=== PATIENT | female | born 1935 | race Caucasian/White ===

== ENCOUNTER 2017-06-05 17:04 | Observation (INO) | payer MEDICARE, SELFPAY ==
[2017-06-05 17:05] VITALS: BP 148/70; PULSE 74; RESP 16; TEMP 37.1; O2SAT 96; BMI 25.0
--- NOTE | 2017-06-05 17:33 | RAD_ITS ---
STUDY: X-RAY - LEFT SHOULDER REASON FOR EXAM: Female, 81 years old. Left shoulder pain. TECHNIQUE: 4 view(s) of the shoulder. COMPARISON: July 29, 2016 FINDINGS: There is stable generalized osteopenia. There is moderate to severe arthrosis of the left glenohumeral joint, relatively unchanged. There is mild arthrosis of the acromioclavicular joint unchanged. Normal acromion. There are large osteophytes of the humeral head unchanged. The soft tissue structures are unremarkable. Normal visualized pulmonary apex. RAD/Shoulder min 2 Views IMPRESSION: Stable osteopenia with osteoarthritic changes. Electronically Signed: Jose Alberto MD at 18:30 EDT , Service support ,
--- NOTE | 2017-06-05 17:33 | RAD_ITS ---
STUDY: X-RAY - ABDOMEN/PELVIS REASON FOR EXAM: Female, 81 years old. Pain TECHNIQUE: Single AP view of the abdomen / pelvis. COMPARISON: None. FINDINGS: There is no bowel obstruction. There is air and stool to the level of the rectum. There is fecal impaction in the rectal vault. The patient is status post left hip arthroplasty. RAD/Abdomen Single View (Portable) IMPRESSION: No bowel obstruction. Fecal impaction in the rectal vault. Electronically Signed: Wilfredo Pozo, at 18:45 EDT Tel , Service support ,
--- NOTE | 2017-06-05 17:35 | ED.VISSUMM ---
- ER Visit Summary Date of Service: 06/05/17 Chief Complaint: Left shoulder pain History of Present Illness: The patient is a 81 F presenting with left shoulder pain. Patient has chronic pain in her left shoulder ?2-3 years. She states she has been told in her rotator cuff is gone. She states on she was cleaning out the drain in her garage and believes that this may have exacerbated her pain. She denies any fall or injury. She also states she has not had a bowel movement in several days. She does not recall her last bowel movement. Denies abdominal pain or vomiting. Physical Examination: Vitals are stable. Patient is afebrile. Alert no acute distress. HEENT exam is unremarkable. Neck is supple. Lungs are clear and equal bilaterally. Heart is regular rate and rhythm. Abdomen is soft nontender nondistended. Extremities left shoulder anterior tenderness, painful range of motion. No erythema or warmth Skin is warm and dry. No focal neurologic deficit. Remainder of exam is unremarkable. Emergency Department Course and Treatment: X-ray of the shoulder shows stable osteopenia. KUB shows no bowel obstruction, fecal impaction. She was given a soapsuds enema with no improvement. She was given Dulcolax with no results. Attempted disimpaction was a very small amount of stool return. Patient does not feel that she can go home. Discussed with the hospitalist for observation Disposition: Observation Impression: Constipation, chronic left shoulder pain This note was generated with [employer] dictation software. It may contain incorrect words, spelling, and punctuation that were not noted in review of the chart prior to signing ED Disposition - Plan for ED Patient: Chief Complaint: Upper Extremity Injury Referrals: Nasir Jacob MD [Primary Care Provider] -
[2017-06-05 18:05] VITALS: RESP 16
[2017-06-05] MEDS: Bisacodyl 10 MG Suppository RECTAL (19:30)
[2017-06-05 20:31] VITALS: BP 147/63; PULSE 75; RESP 18; O2SAT 97
--- NOTE | 2017-06-05 21:31 | PCM.HP.STD ---
Problem List (1) Intractable left shoulder pain Status: Acute (2) Rectal pain Status: Acute (3) HTN (hypertension) Status: Chronic Qualifiers: Hypertension type: essential hypertension Qualified Code(s): I10 - Essential (primary) hypertension (4) Chronic pain syndrome Status: Chronic (5) Dry eye syndrome Status: Chronic Qualifiers: Laterality: bilateral Qualified Code(s): H04.123 - Dry eye syndrome of bilateral lacrimal glands (6) Chronic constipation Status: Chronic History of Present Illness Date of Admission: 06/05/17 Chief Complaint: Acute on chronic L shoulder pain and rectal discomfort w/ no recent BM The patient is a 81 y/o F w/ PMHx: Chronic constipation on chronic narcotics, Chronic L Shoulder Pain and Debility s/p L Rotate Cuff Injury, HTN, Dry Eye Syndrome, Inflammatory Polyarthropathy following w/ Rheumatology who presents to the [facility] ED on 06/05/17 with history of onset worsened L shoulder pain following cleaning 3 days prior to current presentation with worsened debility and also reported rectal discomfort and no recent BM for at least 2-4 days on increased oral narcotic therapy secondary to worsened discomfort. In the ED despite treatment patient noted ongoing pain and anxious about ability to care for self as living alone with ongoing pain. ED work-up included T 98.8, HR 74, BP 148/70, RR 16, 96% on RA, Plain Film L Shoulder w/ stable osteopenia with OA changes, KUB w/ no bowel obstruction but noted significant fecal impaction in the rectal vault with ED physician attempts at disimpaction as well as Dulcolax and soapsuds enema with some success. Past Medical History Past Medical History (Chronic Problems): Chronic Problems HTN (hypertension) (Chronic) Chronic pain syndrome (Chronic) Dry eye syndrome (Chronic) Chronic constipation (Chronic) Allergies No Known Allergies Allergy (Verified 06/05/17 17:08) Home Medications: Ambulatory Orders Medication Instructions Recorded Aspirin [Aspirin, Baby] 81 mg PO DAILY 07/26/16 Calcium Carbonate/Vitamin D3 1 tab PO BID 07/26/16 [Calcium 500 mg Chewable Tablet] Carvedilol [Coreg (Beta Lisandro)] 37.5 mg PO BID 07/26/16 CycloSPORINE Ophthalmic [Restasis 1 drop EACH EYE BID 07/26/16 Ophthalmic] Losartan Potassium 100 mg PO DAILY 07/26/16 Erythromycin Ophthalmic 1 applic OPHTHALMIC QHS 07/27/16 Polyethylene Glycol 3350 [Miralax] 17 gm PO QODAY 02/11/17 Surgical History: - - L THR, D+C. 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 Paternal History Items: - - Paternal family history of hypertension, colorectal cancer. Review of Systems Constitutional: Reports: Malaise, Weakness, Fatigue. Denies: Chills, Fever, Weight Change HEENT: Denies: Head Aches, Sinus Congestion, Sinus Drainage Cardiovascular: Denies: Chest Pain, Palpitations Respiratory: Denies: Cough, Shortness of breath at rest, Sputum production Gastrointestinal: Reports: Abdominal Pain, Constipation. Denies: Nausea, Vomiting Genitourinary: Denies: Dysuria Musculoskeletal: Reports: Arm Pain, Back Pain, Joint stiffness, Joint swelling, Joint Tenderness, Shoulder Pain. Denies: Joint Pain Skin: Denies: Rash, Wounds Neurological: Denies: Numbness, Tingling, Focal weakness Psychiatric: Denies: Anxiety, Depression, Homicidal Ideations, Suicidal Ideations Hematologic/ Lymphatic: Denies: Easy Bruising, Easy Bleeding VTE Information - Inpt Only VTE Present on Admission: No VTE Mechan Device Prophylaxis: SCD's VTE Pharm Prophylaxis ordered?: Yes Patient Problems: Active and Suspected Problems Intractable left shoulder pain (Acute) Rectal pain (Acute) Subjective: Seated upright in the ED bed, notes abdominal discomfort ongoing as well as L shoulder pain. Objective: Physical Examination: General: awake, alert, oriented x 3 and cooperative, seated upright in the ED bed, uncomfortable with attempts to use LUE to move in the ED to reorient. Skin: normal color, turgor, no icterus, cyanosis. HEENT: AT/NC, EOMI, PERRLA, dry MM, no carotid bruits or JVD noted. Lungs: CTA bilaterally, moderate effort, mild decrease BL bases, no rales, ronchi or wheezing. Heart: rRgular rate and rhythm; no gallop, rub audible. Abdomen: soft, no marked discomfort w/ palpation, ND, hyperactive BS, no HSM. Extremities: no cyanosis, clubbing, or edema, LUE shoulder discomfort w/ movement attempts and usage attempts, distal pulses intact. Neurological: patient awake, alert, oriented x 3; cognitive function intact; pupils equally reactive to light and accomodation; cranial nerves II-XII grossly normal, moving all 4 extremities but severely limited LUE movement secondary to discomfort, strength accordingly severely globally decreased. Psychiatric: affect appears fatigued, no acute evidence of depressive or anxiety feelings. - Physical Exam Vital Signs Temp Pulse Resp BP Pulse Ox 98.8 F 75 18 147/63 H 97 06/05/17 17:05 06/05/17 20:31 06/05/17 20:31 06/05/17 20:31 06/05/17 20:31 Oxygen Delivery Method Room Air Weight: 119 lb 11.376 oz Body Mass Index (BMI) 25.0 Assessment/Plan Active and Suspected Problems Intractable left shoulder pain (Acute) Rectal pain (Acute) The patient is a 81 y/o F w/ PMHx: Chronic constipation on chronic narcotics, Chronic L Shoulder Pain and Debility s/p L Rotate Cuff Injury, HTN, Dry Eye Syndrome, Inflammatory Polyarthropathy following w/ Rheumatology who presents to the [facility] ED on 06/05/17 with history of onset worsened L shoulder pain following cleaning on day of ED presentation with worsened debility and also reported rectal discomfort and no recent BM for at least 2-4 days on chronic narcotic therapy. (1) Acute on Chronic Intractable L Shoulder Pain: Plain Film L Shoulder w/ stable osteopenia with OA changes, ongoing debility secondary to rotator cuff tear, given debility secondary to age and unable to care for self with elevated fall risk, will admit to MS, elevated LUE, icing extremity, maintain on fall precautions, frequent positioning, po/IV pain regimen, low dose toradol IV, anti-emetics, bowel regimen. Will consult PT and OT for evaluation. If not improving may need to obtain MRI and obtain Orthopedic consultation. Admission CBC, CMP pending as not performed in the ED, most recent labs 2016 were unremarkable. (2) Acute on Chronic Constipation w/ Fecal Impaction: ED disimpaction with some success as well as Dulcolax and soapsuds enema in the ED, will place on lactulose 20 mg q 6 hours until onset BM, encourage OOB to chair and ambulation with staff/therapies to assist w/ BM, repeat enema as needed, will need more aggressive bowel regimen upon home transition once appropriate. (3) Hypertension: Continue home regimen including Coreg, losartan, PRN hydralazine. (4) Dry Eye Syndrome: Continue home regimen restasis and erythromycin oint. (5) Inflammatory Polyarthropathy: Following w/ Rheumatology outpatient, likely complicating #1. (6) DVT Prophylaxis: SCDs, renally dosed lovenox with pending admission labs, alter regimen as needed once resulted. (7) CODE status: Discussed CODE status at length including difference between FULL code, DNR-CCA and DNR-CC status. Following discussions about the differences in these status, confirmed HCPOA Sister Irene Farley and LW in place with DNR-CCA, no intubation status. Advanced Care Planning Face to Face Time: 17 minutes. Code Visit OBSV E&M: 73882 Initial observation care L3 Procedures: 90869 Advncd Care Plan 30 Min
--- NOTE | 2017-06-05 21:43 | HP.PCM_ITS ---
Problem List (1) Intractable left shoulder pain Status: Acute (2) Rectal pain Status: Acute (3) HTN (hypertension) Status: Chronic Qualifiers: Hypertension type: essential hypertension Qualified Code(s): I10 - Essential (primary) hypertension (4) Chronic pain syndrome Status: Chronic (5) Dry eye syndrome Status: Chronic Qualifiers: Laterality: bilateral Qualified Code(s): H04.123 - Dry eye syndrome of bilateral lacrimal glands (6) Chronic constipation Status: Chronic History of Present Illness Date of Admission: 06/05/17 Chief Complaint: Acute on chronic L shoulder pain and rectal discomfort w/ no recent BM The patient is a 81 y/o F w/ PMHx: Chronic constipation on chronic narcotics, Chronic L Shoulder Pain and Debility s/p L Rotate Cuff Injury, HTN, Dry Eye Syndrome, Inflammatory Polyarthropathy following w/ Rheumatology who presents to the [facility] ED on 06/05/17 with history of onset worsened L shoulder pain following cleaning 3 days prior to current presentation with worsened debility and also reported rectal discomfort and no recent BM for at least 2-4 days on increased oral narcotic therapy secondary to worsened discomfort. In the ED despite treatment patient noted ongoing pain and anxious about ability to care for self as living alone with ongoing pain. ED work-up included T 98.8, HR 74, BP 148/70, RR 16, 96% on RA, Plain Film L Shoulder w/ stable osteopenia with OA changes, KUB w/ no bowel obstruction but noted significant fecal impaction in the rectal vault with ED physician attempts at disimpaction as well as Dulcolax and soapsuds enema with some success. Past Medical History Past Medical History (Chronic Problems): Chronic Problems HTN (hypertension) (Chronic) Chronic pain syndrome (Chronic) Dry eye syndrome (Chronic) Chronic constipation (Chronic) Allergies No Known Allergies Allergy (Verified 06/05/17 17:08) Home Medications: Ambulatory Orders Medication Instructions Recorded Aspirin [Aspirin, Baby] 81 mg PO DAILY 07/26/16 Calcium Carbonate/Vitamin D3 1 tab PO BID 07/26/16 [Calcium 500 mg Chewable Tablet] Carvedilol [Coreg (Beta Lisandro)] 37.5 mg PO BID 07/26/16 CycloSPORINE Ophthalmic [Restasis 1 drop EACH EYE BID 07/26/16 Ophthalmic] Losartan Potassium 100 mg PO DAILY 07/26/16 Erythromycin Ophthalmic 1 applic OPHTHALMIC QHS 07/27/16 Polyethylene Glycol 3350 [Miralax] 17 gm PO QODAY 02/11/17 Surgical History: - - L THR, D+C. 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 Paternal History Items: - - Paternal family history of hypertension, colorectal cancer. Review of Systems Constitutional: Reports: Malaise, Weakness, Fatigue. Denies: Chills, Fever, Weight Change HEENT: Denies: Head Aches, Sinus Congestion, Sinus Drainage Cardiovascular: Denies: Chest Pain, Palpitations Respiratory: Denies: Cough, Shortness of breath at rest, Sputum production Gastrointestinal: Reports: Abdominal Pain, Constipation. Denies: Nausea, Vomiting Genitourinary: Denies: Dysuria Musculoskeletal: Reports: Arm Pain, Back Pain, Joint stiffness, Joint swelling, Joint Tenderness, Shoulder Pain. Denies: Joint Pain Skin: Denies: Rash, Wounds Neurological: Denies: Numbness, Tingling, Focal weakness Psychiatric: Denies: Anxiety, Depression, Homicidal Ideations, Suicidal Ideations Hematologic/ Lymphatic: Denies: Easy Bruising, Easy Bleeding VTE Information - Inpt Only VTE Present on Admission: No VTE Mechan Device Prophylaxis: SCD's VTE Pharm Prophylaxis ordered?: Yes Patient Problems: Active and Suspected Problems Intractable left shoulder pain (Acute) Rectal pain (Acute) Subjective: Seated upright in the ED bed, notes abdominal discomfort ongoing as well as L shoulder pain. Objective: Physical Examination: General: awake, alert, oriented x 3 and cooperative, seated upright in the ED bed, uncomfortable with attempts to use LUE to move in the ED to reorient. Skin: normal color, turgor, no icterus, cyanosis. HEENT: AT/NC, EOMI, PERRLA, dry MM, no carotid bruits or JVD noted. Lungs: CTA bilaterally, moderate effort, mild decrease BL bases, no rales, ronchi or wheezing. Heart: rRgular rate and rhythm; no gallop, rub audible. Abdomen: soft, no marked discomfort w/ palpation, ND, hyperactive BS, no HSM. Extremities: no cyanosis, clubbing, or edema, LUE shoulder discomfort w/ movement attempts and usage attempts, distal pulses intact. Neurological: patient awake, alert, oriented x 3; cognitive function intact; pupils equally reactive to light and accomodation; cranial nerves II-XII grossly normal, moving all 4 extremities but severely limited LUE movement secondary to discomfort, strength accordingly severely globally decreased. Psychiatric: affect appears fatigued, no acute evidence of depressive or anxiety feelings. - Physical Exam Vital Signs Temp Pulse Resp BP Pulse Ox 98.8 F 75 18 147/63 H 97 06/05/17 17:05 06/05/17 20:31 06/05/17 20:31 06/05/17 20:31 06/05/17 20:31 Oxygen Delivery Method Room Air Weight: 119 lb 11.376 oz Body Mass Index (BMI) 25.0 Assessment/Plan Active and Suspected Problems Intractable left shoulder pain (Acute) Rectal pain (Acute) The patient is a 81 y/o F w/ PMHx: Chronic constipation on chronic narcotics, Chronic L Shoulder Pain and Debility s/p L Rotate Cuff Injury, HTN, Dry Eye Syndrome, Inflammatory Polyarthropathy following w/ Rheumatology who presents to the [facility] ED on 06/05/17 with history of onset worsened L shoulder pain following cleaning on day of ED presentation with worsened debility and also reported rectal discomfort and no recent BM for at least 2-4 days on chronic narcotic therapy. (1) Acute on Chronic Intractable L Shoulder Pain: Plain Film L Shoulder w/ stable osteopenia with OA changes, ongoing debility secondary to rotator cuff tear, given debility secondary to age and unable to care for self with elevated fall risk, will admit to MS, elevated LUE, icing extremity, maintain on fall precautions, frequent positioning, po/IV pain regimen, low dose toradol IV, anti -emetics, bowel regimen. Will consult PT and OT for evaluation. If not improving may need to obtain MRI and obtain Orthopedic consultation. Admission CBC, CMP pending as not performed in the ED, most recent labs 2016 were unremarkable. (2) Acute on Chronic Constipation w/ Fecal Impaction: ED disimpaction with some success as well as Dulcolax and soapsuds enema in the ED, will place on lactulose 20 mg q 6 hours until onset BM, encourage OOB to chair and ambulation with staff/therapies to assist w/ BM, repeat enema as needed, will need more aggressive bowel regimen upon home transition once appropriate. (3) Hypertension: Continue home regimen including Coreg, losartan, PRN hydralazine. (4) Dry Eye Syndrome: Continue home regimen restasis and erythromycin oint. (5) Inflammatory Polyarthropathy: Following w/ Rheumatology outpatient, likely complicating #1. (6) DVT Prophylaxis: SCDs, renally dosed lovenox with pending admission labs, alter regimen as needed once resulted. (7) CODE status: Discussed CODE status at length including difference between FULL code, DNR-CCA and DNR-CC status. Following discussions about the differences in these status, confirmed HCPOA Sister Irene Farley and LW in place with DNR-CCA, no intubation status. Advanced Care Planning Face to Face Time: 17 minutes. Code Visit OBSV E&M: 43043 Initial observation care L3 Procedures: 04024 Advncd Care Plan 30 Min
[2017-06-05 22:03] VITALS: BP 139/59; PULSE 80; RESP 18; O2SAT 95
[2017-06-05 22:18] LABS: Absolute Lymphocyte Count 0.52 X10^3/ul (0.83-4.51); Absolute Neutrophil Count 7.8 X10^3/uL (2.0-7.7); Basophil# 0.01 X10^3/uL; Basophil% 0.1 % (0-1); Hematocrit 37.9 % (37-47); Hemoglobin 13.1 g/dl (12.0-15.0); Lymphocyte # 0.52 X10^3/ul (4.0); Lymphocyte % 5.7 % (19-41); Mean Corp Hgb Conc 34.6 g/gl (32-36); Mean Corpuscular Hgb 32.7 pg (27.0-32.0); Mean Corpuscular Volume 94.5 fL (81-99); Mean Platelet Vol. 9.6 fl (6.2-12.0); Monocyte# 0.75 X10^3/uL; Monocyte% 8.2 % (0-10); Neutrophil # 7.84 X10^3/uL (2.7-7.7); Neutrophil % 85.9 % (47-70); Platelet Count 142 K/mm3 (150-450); RBC Distribution Width CV 11.8 % (11.6-14.6); Red Blood Count 4.01 M/mm3 (4.2-5.4); White Blood Count 9.1 K/mm3 (4.4-11.0)
[2017-06-05 22:20] LABS: Differential Indicated SCAN CRITERIA MET; POSITIVE COUNT NO; POSITIVE DIFFERENTIAL YES; POSITIVE MORPHOLOGY NO
[2017-06-05 22:30] LABS: Anion Gap 6 (5-15); BUN 15 mg/dL (7-18); BUN/Creat Ratio 20.7 RATIO (10-20); Calcium,Total 8.6 mg/dL (8.5-10.1); Chloride 101 mmol/L (98-107); Creatinine, Serum 0.72 mg/dL (0.55-1.02); EST Glomerular Filtration Rate 82 mL/min (>60); Est Glom Filt Rate - Afr Amer 99 mL/min (>60); Estimated Creatinine Clearance 37.18 ml/min; Glucose 101 mg/dL (74-106); Potassium 4.1 mmol/L (3.5-5.1); Sodium Level 135 mmol/L (136-145)
[2017-06-05 22:37] VITALS: BP 149/69; PULSE 87; RESP 20; TEMP 36.7; O2SAT 97
[2017-06-05 22:39] LABS: Anisocytosis RARE; Macrocytosis RARE; Platelet Estimate ADEQUATE (ADEQ)
[2017-06-05 22:40] VITALS: BMI 24.4
[2017-06-05 22:54] VITALS: BMI 24.4
[2017-06-05 23:04] LABS: Magnesium 2.2 mg/dL (1.6-2.6); Thyroid Stim Hormone (TSH) 1.54 uIU/mL (0.358-3.74)
[2017-06-05] MEDS: Lactulose 20 GM/30 ML UDC PO (23:30)
[2017-06-05] MEDS: Erythromycin Base 1 OPTH.TUBE 1 APPLIC OPHTHALMIC (23:30)
[2017-06-05] MEDS: Carvedilol 12.5 MG Tablet 37.5 MG PO (23:31)
[2017-06-05] MEDS: Ketorolac 15 MG/ML Vial IV (23:31)
[2017-06-05] MEDS: Famotidine 20 MG Tablet PO (23:31)
[2017-06-05] MEDS: Senna/Docusate Sodium 1 Tablet 2 TABLET PO (23:31)
[2017-06-05] MEDS: 0.9% Normal Saline 1,000 ML 100 ML IV (23:32)
[2017-06-06 04:36] VITALS: BP 140/72; PULSE 66; RESP 16; TEMP 36.7; O2SAT 98
[2017-06-06] MEDS: Mag Hydrox/Al Hydrox/Simeth 30 ML UDC PO (04:43)
[2017-06-06 06:53] LABS: Mean Corp Hgb Conc 34.3 g/gl (32-36); Mean Corpuscular Hgb 32.6 pg (27.0-32.0); Mean Corpuscular Volume 95.1 fL (81-99); Mean Platelet Vol. 10.2 fl (6.2-12.0); Platelet Count 141 K/mm3 (150-450); RBC Distribution Width CV 11.4 % (11.6-14.6); RBC Distribution Width SD 38.5 fl (35.1-43.9); Red Blood Count 3.68 M/mm3 (4.2-5.4); White Blood Count 8.8 K/mm3 (4.4-11.0)
[2017-06-06 06:54] LABS: Scan Indicated on CBC? Y/N NO
[2017-06-06] MEDS: Ketorolac 15 MG/ML Vial IV ×2 (07:00→13:50)
[2017-06-06] MEDS: Lactulose 20 GM/30 ML UDC PO (07:00)
[2017-06-06 07:18] LABS: Anion Gap 8 (5-15); BUN 12 mg/dL (7-18); BUN/Creat Ratio 19.3 RATIO (10-20); Calcium,Total 8.2 mg/dL (8.5-10.1); Chloride 101 mmol/L (98-107); Creatinine, Serum 0.62 mg/dL (0.55-1.02); EST Glomerular Filtration Rate 97 mL/min (>60); Est Glom Filt Rate - Afr Amer 118 mL/min (>60); Estimated Creatinine Clearance 33.83 ml/min; Glucose 74 mg/dL (74-106); Potassium 3.5 mmol/L (3.5-5.1); Sodium Level 135 mmol/L (136-145)
[2017-06-06] MEDS: Aspirin 81 MG TAB.CHEW PO (08:57)
[2017-06-06 09:09] VITALS: BP 114/59; PULSE 69; RESP 20; TEMP 36.6; O2SAT 96
--- NOTE | 2017-06-06 10:22 | PCM.PN.HOSP ---
Patient Problems: Active and Suspected Problems Intractable left shoulder pain (Acute) Rectal pain (Acute) Subjective: 81-year-old female admitted on 06/05/2017 with acute on chronic left shoulder pain and constipation. Patient was seen and examined. She had one large bowel movement and she admits to feeling much better. Denies any fever or chills or chest pain. Unable to move the left upper extremity well. Vitals/I&O's: Vital Signs Temp Pulse Resp BP Pulse Ox 98 F 69 20 H 114/59 L 96 06/06/17 09:09 06/06/17 09:09 06/06/17 09:09 06/06/17 09:09 06/06/17 09:09 Oxygen Delivery Method Room Air Weight: 49.4 kg Body Mass Index (BMI) 24.4 Intake and Output for Last 24 Hours 06/04/17 06/05/17 06/06/17 23:59 23:59 23:59 Intake Total 1147.3 / 1147.3 Balance 1147.3 / 1147.3 General: Alert, Oriented x3, Cooperative, No apparent distress HEENT: Atraumatic, PERRLA, EOMI, Normocephalic Oral: Moist Mucosa Neck: Supple Lungs: Clear to auscultation, Normal air movement Cardiovascular: Regular rate, Regular Rhythm, Normal S1, Normal S2, No murmurs Abdomen: Bowel Sounds Present, Soft, Non Tender, Non-Distended, No Hepato-splenomegaly Extremities: No edema Skin: No rashes, No breakdown Musculoskeletal: No Tenderness to Palpation of Joints or Extremities Lymphatic: No Cervical, Supraclavicular, or Inguinal Adenopathy Neurological: Cranial nerves II-XII grossly intact Psych/Mental Status: Normal Affect, Appropriate Laboratory Results 06/05/17 22:00: WBC 9.1, RBC 4.01 L, Hgb 13.1, Hct 37.9, MCV 94.5, MCH 32.7 H, MCHC 34.6, RDW 11.8, RDW Differential 40.0, Plt Count 142 L, MPV 9.6, Immature Gran % (Auto) 0.100, Neut % (Auto) 85.9 H, Lymph % (Auto) 5.7 L, [place] % (Auto) 8.2, Eos % (Auto) 0.0, Baso % (Auto) 0.1, Absolute Neuts (auto) 7.8 H, Absolute Lymphs (auto) 0.52 L, Total Counted Not Reportable, Differential Comment SEE COMMENT, Platelet Estimate ADEQUATE, Anisocytosis RARE, Macrocytosis RARE 06/05/17 22:00: Sodium 135 L, Potassium 4.1, Chloride 101, Carbon Dioxide 28.0, Anion Gap 6, BUN 15, Creatinine 0.72, Estim Creat Clear Calc 37.18, Est GFR (MDRD) Af Amer 99, Est GFR (MDRD) Non-Af 82, BUN/Creatinine Ratio 20.7 H, Glucose 101, Calcium 8.6 06/05/17 22:00: Magnesium 2.2, TSH 1.54 06/06/17 06:23: WBC 8.8, RBC 3.68 L, Hgb 12.0, Hct 35.0 L, MCV 95.1, MCH 32.6 H, MCHC 34.3, RDW 11.4 L, RDW Differential 38.5, Plt Count 141 L, MPV 10.2 06/06/17 06:23: Sodium 135 L, Potassium 3.5, Chloride 101, Carbon Dioxide 26.0, Anion Gap 8, BUN 12, Creatinine 0.62, Estim Creat Clear Calc 33.83, Est GFR (MDRD) Af Amer 118, Est GFR (MDRD) Non-Af 97, BUN/Creatinine Ratio 19.3, Glucose 74, Calcium 8.2 L Current Medications Acetaminophen (Tylenol) 650 mg PO Q6H PRN PRN PRN Reason: Mild Pain (scale 0-3)/T>100.7 Al Hydroxide/Mg Hydroxide (Mylanta Ii) 30 ml PO Q6H PRN PRN PRN Reason: Gastric burning Last Admin: 06/06/17 04:43 Dose: 30 ml Artificial Tears (Tears Naturale, Artificial Tears) 2 drop EACH EYE Q1H PRN PRN PRN Reason: DRY EYES [facility] Last Admin: 06/06/17 08:57 Dose: 81 mg Carvedilol (Coreg) 37.5 mg PO BID [facility] Last Admin: 06/05/17 23:31 Dose: 37.5 mg Enoxaparin Sodium (Lovenox) 30 mg SC DAILY@1000 [facility] Erythromycin () 1 applic OPHTHALMIC QHS [facility] Last Admin: 06/05/17 23:30 Dose: 1 applicatio Famotidine (Pepcid) 20 mg PO BID [facility] Last Admin: 06/05/17 23:31 Dose: 20 mg Sodium Chloride () 250 mls @ 15 mls/hr IV .[id number] PRN PRN Reason: SALINE FLUSH Ketorolac Tromethamine (Toradol) 15 mg IV Q8 [facility] Stop: 06/06/17 14:01 Last Admin: 06/06/17 07:00 Dose: 15 mg Lactulose (Chronulac, Cephulac) 20 gm PO Q6 [facility] Last Admin: 06/06/17 07:00 Dose: 20 gm Losartan Potassium (Cozaar) 100 mg PO DAILY [facility] Magnesium Hydroxide (Milk Of Magnesia) 30 ml PO DAILY PRN PRN PRN Reason: Constipation Morphine Sulfate () 2 - 4 mg IV Q3H PRN PRN PRN Reason: Severe Pain (pain scale 6-10) Morphine Sulfate () 1 - 2 mg IV Q4H PRN PRN PRN Reason: Moderate Pain (pain scale 4-5) Morphine Sulfate () 2 - 4 mg IV Q3H PRN PRN PRN Reason: Severe Pain (pain scale 6-10) Nutritional Formula (Lactose Free) (Ensure Enlive) 120 ml PO 4X/DAY [facility] Ondansetron HCl (Zofran) 4 mg IV Q8H PRN PRN PRN Reason: NAUSEA Oxycodone HCl (Oxyir) 5 mg PO Q4H PRN PRN PRN Reason: Moderate Pain (pain scale 4-5) Promethazine HCl (Phenergan Iv) 12.5 mg IV Q6H PRN PRN PRN Reason: NAUSEA/VOMITING Psyllium Hydrophilic Mucilloid (Metamucil) 1 packet PO DAILY [facility] Last Admin: 06/06/17 08:57 Dose: Not Given Senna/Docusate Sodium (Senokot-S, Roselyn-Colace) 2 tablet PO BID [facility] Last Admin: 06/06/17 08:56 Dose: Not Given Sodium Chloride () 5 - 30 ml IV UD PRN PRN Reason: SALINE FLUSH Medical Necessity - Tobacco Use Smoking Status: Never smoker Tobacco Use: Non-smoker Assessment/Plan Active and Suspected Problems Intractable left shoulder pain (Acute) Rectal pain (Acute) 81 y/o female past medical history of chronic pain syndrome, on chronic narcotics, debility with chronic left shoulder pain, history of left rotator cuff injury, hypertension, who comes in with complaints of worsening left shoulder pain as well as constipation. 1. Acute on Chronic Intractable left Shoulder Pain, pain is fairly controlled now, the x-ray shows moderate to severe arthrosis of the left glenohumeral joint with osteopenia , on Toradol, Oxycodone and morphine. Will consult orthopedic team for second opinion of options of managing left shoulder pain such as possible left shoulder injection. 2. Acute on Chronic Constipation with Fecal Impaction, resolved, had a large bowel movement this a.m. Will continue stool softeners. 3. Hypertension, controlled on Coreg, losartan, PRN hydralazine. 4. Dry Eye Syndrome, on home regimen restasis and erythromycin oint. 5. 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 6. DVT Prophylaxis - on Lovenox 7. CODE status: DNR-CCA Code Visit Inpatient E&M: 75798 Subs Hosp L2
--- NOTE | 2017-06-06 10:30 | PN_ITS ---
Patient Problems: Active and Suspected Problems Intractable left shoulder pain (Acute) Rectal pain (Acute) Subjective: 81-year-old female admitted on 06/05/2017 with acute on chronic left shoulder pain and constipation. Patient was seen and examined. She had one large bowel movement and she admits to feeling much better. Denies any fever or chills or chest pain. Unable to move the left upper extremity well. Vitals/I&O's: Vital Signs Temp Pulse Resp BP Pulse Ox 98 F 69 20 H 114/59 L 96 06/06/17 09:09 06/06/17 09:09 06/06/17 09:09 06/06/17 09:09 06/06/17 09:09 Oxygen Delivery Method Room Air Weight: 49.4 kg Body Mass Index (BMI) 24.4 Intake and Output for Last 24 Hours 06/04/17 06/05/17 06/06/17 23:59 23:59 23:59 Intake Total 1147.3 / 1147.3 Balance 1147.3 / 1147.3 General: Alert, Oriented x3, Cooperative, No apparent distress HEENT: Atraumatic, PERRLA, EOMI, Normocephalic Oral: Moist Mucosa Neck: Supple Lungs: Clear to auscultation, Normal air movement Cardiovascular: Regular rate, Regular Rhythm, Normal S1, Normal S2, No murmurs Abdomen: Bowel Sounds Present, Soft, Non Tender, Non-Distended, No Hepato- splenomegaly Extremities: No edema Skin: No rashes, No breakdown Musculoskeletal: No Tenderness to Palpation of Joints or Extremities Lymphatic: No Cervical, Supraclavicular, or Inguinal Adenopathy Neurological: Cranial nerves II-XII grossly intact Psych/Mental Status: Normal Affect, Appropriate Laboratory Results 06/05/17 22:00: WBC 9.1, RBC 4.01 L, Hgb 13.1, Hct 37.9, MCV 94.5, MCH 32.7 H, MCHC 34.6, RDW 11.8, RDW Differential 40.0, Plt Count 142 L, MPV 9.6, Immature Gran % (Auto) 0.100, Neut % (Auto) 85.9 H, Lymph % (Auto) 5.7 L, [place] % (Auto) 8.2, Eos % (Auto) 0.0, Baso % (Auto) 0.1, Absolute Neuts (auto) 7.8 H, Absolute Lymphs (auto) 0.52 L, Total Counted Not Reportable, Differential Comment SEE COMMENT, Platelet Estimate ADEQUATE, Anisocytosis RARE, Macrocytosis RARE 06/05/17 22:00: Sodium 135 L, Potassium 4.1, Chloride 101, Carbon Dioxide 28.0, Anion Gap 6, BUN 15, Creatinine 0.72, Estim Creat Clear Calc 37.18, Est GFR ( MDRD) Af Amer 99, Est GFR (MDRD) Non-Af 82, BUN/Creatinine Ratio 20.7 H, Glucose 101, Calcium 8.6 06/05/17 22:00: Magnesium 2.2, TSH 1.54 06/06/17 06:23: WBC 8.8, RBC 3.68 L, Hgb 12.0, Hct 35.0 L, MCV 95.1, MCH 32.6 H , MCHC 34.3, RDW 11.4 L, RDW Differential 38.5, Plt Count 141 L, MPV 10.2 06/06/17 06:23: Sodium 135 L, Potassium 3.5, Chloride 101, Carbon Dioxide 26.0, Anion Gap 8, BUN 12, Creatinine 0.62, Estim Creat Clear Calc 33.83, Est GFR ( MDRD) Af Amer 118, Est GFR (MDRD) Non-Af 97, BUN/Creatinine Ratio 19.3, Glucose 74, Calcium 8.2 L Current Medications Acetaminophen (Tylenol) 650 mg PO Q6H PRN PRN PRN Reason: Mild Pain (scale 0-3)/T>100.7 Al Hydroxide/Mg Hydroxide (Mylanta Ii) 30 ml PO Q6H PRN PRN PRN Reason: Gastric burning Last Admin: 06/06/17 04:43 Dose: 30 ml Artificial Tears (Tears Naturale, Artificial Tears) 2 drop EACH EYE Q1H PRN PRN PRN Reason: DRY EYES [facility], [facility] Last Admin: 06/06/17 08:57 Dose: 81 mg Carvedilol (Coreg) 37.5 mg PO BID [facility] Last Admin: 06/05/17 23:31 Dose: 37.5 mg Enoxaparin Sodium (Lovenox) 30 mg SC DAILY@1000 [facility] Erythromycin () 1 applic OPHTHALMIC QHS [facility] Last Admin: 06/05/17 23:30 Dose: 1 applicatio Famotidine (Pepcid) 20 mg PO BID [facility] Last Admin: 06/05/17 23:31 Dose: 20 mg Sodium Chloride () 250 mls @ 15 mls/hr IV .[id number] PRN PRN Reason: SALINE FLUSH Ketorolac Tromethamine (Toradol) 15 mg IV Q8 [facility] Stop: 06/06/17 14:01 Last Admin: 06/06/17 07:00 Dose: 15 mg Lactulose (Chronulac, Cephulac) 20 gm PO Q6 [facility] Last Admin: 06/06/17 07:00 Dose: 20 gm Losartan Potassium (Cozaar) 100 mg PO DAILY [facility] Magnesium Hydroxide (Milk Of Magnesia) 30 ml PO DAILY PRN PRN PRN Reason: Constipation Morphine Sulfate () 2 - 4 mg IV Q3H PRN PRN PRN Reason: Severe Pain (pain scale 6-10) Morphine Sulfate () 1 - 2 mg IV Q4H PRN PRN PRN Reason: Moderate Pain (pain scale 4-5) Morphine Sulfate () 2 - 4 mg IV Q3H PRN PRN PRN Reason: Severe Pain (pain scale 6-10) Nutritional Formula (Lactose Free) (Ensure Enlive) 120 ml PO 4X/DAY [facility] Ondansetron HCl (Zofran) 4 mg IV Q8H PRN PRN PRN Reason: NAUSEA Oxycodone HCl (Oxyir) 5 mg PO Q4H PRN PRN PRN Reason: Moderate Pain (pain scale 4-5) Promethazine HCl (Phenergan Iv) 12.5 mg IV Q6H PRN PRN PRN Reason: NAUSEA/VOMITING Psyllium Hydrophilic Mucilloid (Metamucil) 1 packet PO DAILY [facility] Last Admin: 06/06/17 08:57 Dose: Not Given Senna/Docusate Sodium (Senokot-S, Roselyn-Colace) 2 tablet PO BID [facility] Last Admin: 06/06/17 08:56 Dose: Not Given Sodium Chloride () 5 - 30 ml IV UD PRN PRN Reason: SALINE FLUSH Medical Necessity - Tobacco Use Smoking Status: Never smoker Tobacco Use: Non-smoker Assessment/Plan Active and Suspected Problems Intractable left shoulder pain (Acute) Rectal pain (Acute) 81 y/o female past medical history of chronic pain syndrome, on chronic narcotics, debility with chronic left shoulder pain, history of left rotator cuff injury, hypertension, who comes in with complaints of worsening left shoulder pain as well as constipation. 1. Acute on Chronic Intractable left Shoulder Pain, pain is fairly controlled now, the x-ray shows moderate to severe arthrosis of the left glenohumeral joint with osteopenia , on Toradol, Oxycodone and morphine. Will consult orthopedic team for second opinion of options of managing left shoulder pain such as possible left shoulder injection. 2. Acute on Chronic Constipation with Fecal Impaction, resolved, had a large bowel movement this a.m. Will continue stool softeners. 3. Hypertension, controlled on Coreg, losartan, PRN hydralazine. 4. Dry Eye Syndrome, on home regimen restasis and erythromycin oint. 5. 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 6. DVT Prophylaxis - on Lovenox 7. CODE status: DNR-CCA Code Visit Inpatient E&M: 37822 Subs Hosp L2
[2017-06-06 10:32] VITALS: PULSE 69; RESP 20
[2017-06-06] MEDS: Famotidine 20 MG Tablet PO ×2 (10:41→21:44)
[2017-06-06] MEDS: Losartan Potassium 100 MG Tablet PO (10:41)
[2017-06-06] MEDS: Enoxaparin 30 MG/0.3 ML Syringe SC (10:41)
[2017-06-06] MEDS: Carvedilol 12.5 MG Tablet 37.5 MG PO ×2 (10:41→21:44)
[2017-06-06 11:55] VITALS: O2SAT 97
[2017-06-06] MEDS: 0.9% NaCl Peripheral Flush Adult/Peds IV (13:50)
[2017-06-06 15:30] VITALS: BP 91/42; PULSE 63; RESP 20; TEMP 36.6; O2SAT 98
[2017-06-06 21:34] VITALS: BP 130/67; PULSE 70; RESP 16; TEMP 36.9; O2SAT 98
[2017-06-06] MEDS: Erythromycin Base 1 OPTH.TUBE 1 APPLIC OPHTHALMIC (21:45)
[2017-06-07 02:22] VITALS: BP 115/57; PULSE 67; RESP 18; TEMP 36.5; O2SAT 96
[2017-06-07] MEDS: Lactulose 20 GM/30 ML UDC PO (06:18)
[2017-06-07 07:50] VITALS: O2SAT 98
[2017-06-07 09:12] VITALS: BP 117/57; PULSE 67; RESP 16; TEMP 36.6; O2SAT 97
[2017-06-07] MEDS: Enoxaparin 30 MG/0.3 ML Syringe SC (09:20)
[2017-06-07] MEDS: Carvedilol 12.5 MG Tablet 37.5 MG PO (09:20)
[2017-06-07] MEDS: Losartan Potassium 100 MG Tablet PO (09:20)
[2017-06-07] MEDS: Aspirin 81 MG TAB.CHEW PO (09:20)
[2017-06-07] MEDS: Famotidine 20 MG Tablet PO (09:21)
--- NOTE | 2017-06-07 10:18 | PN_ITS ---
Patient Problems: Active and Suspected Problems Intractable left shoulder pain (Acute) Rectal pain (Acute) Subjective: Patient is an 81 year old lady with history of chronic pain syndrome significant physical debility with chronic left shoulder pain who presented with acute exacerbation imaging studies obtained and admission demonstrated moderate to severe arthrosis of the left glenohumeral joint with osteopenia, admitted to regular nursing floor for symptomatic management in addition to orthopedic consult 06/07/2017: Patient had constipation treated symptomatically Objective: GENERAL: cooperative HEENT: Clear conjunctiva, NECK; supple, normal thyroid, CHEST: Clear to auscultation bilaterally, HEART: Regular S1 S2, no audible murmurs ABDOMEN: soft, non-tender, normoactive bowel sounds, RECTAL: deferred EXTREMITIES: No edema, no clubbing, no cyanosis. 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 SKIN: No rash Vitals/I&O's: Vital Signs Temp Pulse Resp BP Pulse Ox 97.9 F 67 16 117/57 L 97 06/07/17 09:12 06/07/17 09:12 06/07/17 09:12 06/07/17 09:12 06/07/17 09:12 Oxygen Delivery Method Room Air Weight: 49.4 kg Body Mass Index (BMI) 24.4 Intake and Output for Last 24 Hours 06/05/17 06/06/17 06/07/17 23:59 23:59 23:59 Intake Total 2227.3 / 2227.3 200 / 200 Balance 2227.3 / 2227.3 200 / 200 Current Medications Acetaminophen (Tylenol) 650 mg PO Q6H PRN PRN PRN Reason: Mild Pain (scale 0-3)/T>100.7 Al Hydroxide/Mg Hydroxide (Mylanta Ii) 30 ml PO Q6H PRN PRN PRN Reason: Gastric burning Last Admin: 06/06/17 04:43 Dose: 30 ml Artificial Tears (Tears Naturale, Artificial Tears) 2 drop EACH EYE Q1H PRN PRN PRN Reason: DRY EYES Last Admin: 06/06/17 21:44 Dose: 2 drop [facility], [facility]) [facility] Last Admin: 06/07/17 09:20 Dose: 81 mg Carvedilol (Coreg) 37.5 mg PO BID [facility] Last Admin: 06/07/17 09:20 Dose: 37.5 mg Enoxaparin Sodium (Lovenox) 30 mg SC DAILY@1000 [facility] Last Admin: 06/07/17 09:20 Dose: 30 mg Erythromycin () 1 applic OPHTHALMIC QHS [facility] Last Admin: 06/06/17 21:45 Dose: 1 applicatio Famotidine (Pepcid) 20 mg PO BID [facility] Last Admin: 06/07/17 09:21 Dose: 20 mg Sodium Chloride () 250 mls @ 15 mls/hr IV .[id number] PRN PRN Reason: SALINE FLUSH Lactulose (Chronulac, Cephulac) 20 gm PO Q6 [facility] Last Admin: 06/07/17 06:18 Dose: 20 gm Losartan Potassium (Cozaar) 100 mg PO DAILY [facility] Last Admin: 06/07/17 09:20 Dose: 100 mg Magnesium Hydroxide (Milk Of Magnesia) 30 ml PO DAILY PRN PRN PRN Reason: Constipation Morphine Sulfate () 2 - 4 mg IV Q3H PRN PRN PRN Reason: Severe Pain (pain scale 6-10) Morphine Sulfate () 1 - 2 mg IV Q4H PRN PRN PRN Reason: Moderate Pain (pain scale 4-5) Morphine Sulfate () 2 - 4 mg IV Q3H PRN PRN PRN Reason: Severe Pain (pain scale 6-10) Nutritional Formula (Lactose Free) (Ensure Enlive) 120 ml PO 4X/DAY [facility] Last Admin: 06/07/17 09:22 Dose: 120 ml Ondansetron HCl (Zofran) 4 mg IV Q8H PRN PRN PRN Reason: NAUSEA Oxycodone HCl (Oxyir) 5 mg PO Q4H PRN PRN PRN Reason: Moderate Pain (pain scale 4-5) Promethazine HCl (Phenergan Iv) 12.5 mg IV Q6H PRN PRN PRN Reason: NAUSEA/VOMITING Psyllium Hydrophilic Mucilloid (Metamucil) 1 packet PO DAILY [facility] Last Admin: 06/07/17 09:20 Dose: Not Given Senna/Docusate Sodium (Senokot-S, Roselyn-Colace) 2 tablet PO BID [facility] Last Admin: 06/07/17 09:20 Dose: Not Given Sodium Chloride () 5 - 30 ml IV UD PRN PRN Reason: SALINE FLUSH Last Admin: 06/06/17 13:50 Dose: 10 ml Medical Necessity - Tobacco Use Smoking Status: Never smoker Tobacco Use: Non-smoker Assessment/Plan Active and Suspected Problems Intractable left shoulder pain (Acute) Rectal pain (Acute) Patient is an 81 year old lady with history of chronic pain syndrome significant physical debility with chronic left shoulder pain who presented with acute exacerbation imaging studies obtained and admission demonstrated moderate to severe arthrosis of the left glenohumeral joint with osteopenia, admitted to regular nursing floor for symptomatic management in addition to orthopedic consult 1. Left shoulder pain: Imaging studies demonstrated; moderate to severe arthrosis of the left glenohumeral joint with osteopenia, admitted to regular nursing floor for symptomatic management in addition to orthopedic consult 2. Constipation resolved with treatment 3. Hypertension-blood pressure controlled, home medications continued with dose adjustment as needed 4. Inflammatory polyarthropathy vision is followed by rheumatology as outpatient 5. DVT prophylaxis SC Lovenox CODE STATUS DNR CCA Code Visit OBSV E&M: 00310 Subsequent observation care L3
--- NOTE | 2017-06-07 11:35 | CASEMGMT ---
Medicare Outpatient Observation Notice reviewed with patient. Patient voiced understanding and signed notice. RN FAROOQ provided copy of signed for to patient as well as Medicare Inpatient vs Outpatient information packet. Original signed form filed on chart. Patient voiced no questions or concerns at this time.
--- NOTE | 2017-06-07 11:44 | PCM.CONS.GEN ---
Problem List (1) Intractable left shoulder pain Status: Chronic Reason for Consult Date of Consultation: 06/07/17 Reason for Consultation: Chronic left shoulder pain History of Present Illness: The patient is a 81 year old F [] who was brought to the emergency department via squad due to abdominal pain and constipation. Patient also informed them that she was having ongoing chronic shoulder pain. Patient states this is the same pain she has had for many years. She has been seen previously by Dr. Syed as well as Dr. Gao and has received intra-articular injections in the past. Patient feels her last injection was sometime in 2017. Patient reports no falls or new injuries to the shoulder. Patient states this is the same pain she has had for many years, it is unable to use any form of oral anti-inflammatory per Dr. Gao. Per patient as well as nursing staff patient has had frequent bowel movements since she has been here. States her pain is well-managed at this time in her left shoulder. No other complaints. Past Medical History Past Medical History (Chronic Problems): Chronic Problems Intractable left shoulder pain (Chronic) HTN (hypertension) (Chronic) Chronic pain syndrome (Chronic) Dry eye syndrome (Chronic) Chronic constipation (Chronic) Allergies No Known Allergies Allergy (Verified 06/05/17 17:08) Home Medications: Ambulatory Orders Medication Instructions Recorded Aspirin [Aspirin, Baby] 81 mg PO DAILY 07/26/16 Calcium Carbonate/Vitamin D3 1 tab PO BID 07/26/16 [Calcium 500 mg Chewable Tablet] Carvedilol [Coreg (Beta Lisandro)] 37.5 mg PO BID 07/26/16 CycloSPORINE Ophthalmic [Restasis 1 drop EACH EYE BID 07/26/16 Ophthalmic] Losartan Potassium 100 mg PO DAILY 07/26/16 Erythromycin Ophthalmic 1 applic OPHTHALMIC QHS 07/27/16 Polyethylene Glycol 3350 [Miralax] 17 gm PO DAILY 02/11/17 Tramadol HCl [Ultram] 50 mg PO 06/06/17 Surgical History: - - L THR, D+C. 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 Paternal History Items: - - Paternal family history of hypertension, colorectal cancer. Review of Systems HEENT: Reports: Difficulty Hearing. Denies: Sinus Congestion Respiratory: Denies: Shortness of breath at rest Musculoskeletal: Reports: Arm Pain, Joint Pain, Joint stiffness, Shoulder Pain Patient Problems: Active and Suspected Problems Rectal pain (Acute) Subjective: Upon entering the room I found the patient sitting in a chair at bedside. Patient was alert and oriented. Negative respiratory distress. Cranial nerves II through XII grossly intact. No pain to palpation cervical thoracic lumbosacral spine. Full range of motion of the right shoulder without pain. Left shoulder patient had increasing pain with it in difficulty with elevation overhead passively she was able to elevate overhead with some mild pain patient has severe pain with any active range of motion or motion against resistance. Positive Neer's positive Tanner negative drop arm test positive crossover patient did have palpable crepitus with range of motion of the glenohumeral as well as AC joint. His shoulder was cool to touch nonerythematous. Good muscle tone and strength of biceps triceps good flexion-extension of the elbow wrist and hand left hand neurovascular is otherwise intact. Review of imaging studies show patient has severe osteoarthritis change of the femoral head neck and glenoid and glenoid she has a large type II acromion with downsloping impingement severe AC joint arthrosis. Objective: Procedure The patient verbal consent under sterile conditions and posterior aspect of the left shoulder I then injected 2 cc of Celestone 4 cc 1% lidocaine which patient tolerated very well there is good with a Band-Aid postinjection instruction reviewed and discussed - Physical Exam General: Alert, Oriented x3, Cooperative HEENT: PERRLA Vital Signs Temp Pulse Resp BP Pulse Ox 97.9 F 67 16 117/57 L 97 06/07/17 09:12 06/07/17 09:12 06/07/17 09:12 06/07/17 09:12 06/07/17 09:12 Oxygen Delivery Method Room Air Weight: 49.4 kg Body Mass Index (BMI) 24.4 Intake and Output for Last 24 Hours 06/05/17 06/06/17 06/07/17 23:59 23:59 23:59 Intake Total 2227.3 / 2227.3 200 / 200 Balance 2227.3 / 2227.3 200 / 200 Assessment/Plan Active and Suspected Problems Rectal pain (Acute) Impression 1. Severe chronic left shoulder pain 2. Severe end-stage osteoarthritis of left shoulder. 3. Subacromial impingement 4. Incompetent rotator cuff 5. Acute tendinosis of the left shoulder 6. AC joint arthrosis Plan 1. Continue all pain medications as prescribed 2. Continue physical therapy, at discharge continue with outpatient therapy 3. Follow with Dr. Syed in 2-3 weeks 4. A discontinuation of anticoagulation of Lovenox consideration for on oral daily anti-inflammatory 5. Discharge home when clear with medicine
[2017-06-07] MEDS: Betamethasone/Betamethasone 30 MG/5 ML Vial 6 MG IM (12:02)
--- NOTE | 2017-06-07 12:33 | PCM.DC ---
- Discharge Diagnoses Current Active Problems: Current Active and Chronic Problems Intractable left shoulder pain (Chronic) Rectal pain (Acute) HTN (hypertension) (Chronic) Chronic pain syndrome (Chronic) Dry eye syndrome (Chronic) Chronic constipation (Chronic) You will use the following diet at home:: No restrictions Discharge Activity: May not drive while taking narcotic pain medications. Allergies/Adverse Reactions: Allergies No Known Allergies Allergy (Verified 06/05/17 17:08) Medications to take at Discharge Aspirin [Aspirin, Baby] 81 mg PO DAILY 07/26/16 Calcium Carbonate/Vitamin D3 [Calcium 500 mg Chewable Tablet] 1 tab PO BID 07/26/16 Carvedilol [Coreg (Beta Lisandro)] 37.5 mg PO BID 07/26/16 CycloSPORINE Ophthalmic [Restasis Ophthalmic] 1 drop EACH EYE BID 07/26/16 Losartan Potassium 100 mg PO DAILY 07/26/16 Erythromycin Ophthalmic 1 applic OPHTHALMIC QHS 07/27/16 Polyethylene Glycol 3350 [Miralax] 17 gm PO DAILY 02/11/17 Acetaminophen [Tylenol Tablet] 650 mg PO Q6H PRN PRN tablet 06/07/17 Primary Care Physician: Nasir Jacob MD [Primary Care Provider] - Please follow up with your Primary Care Physician in: in 1-2 weeks Please Follow Up With: Jimmy Hines MD When: in 1-2 weeks Proposed Discharge Date: 06/07/17
--- NOTE | 2017-06-07 12:39 | PCM.DC.SUM ---
Discharge Date and Diagnosis - Problem List Patient Problems: Active and Suspected Problems Shoulder pain (Acute) Date of Admission: 06/05/17 Date of Discharge: 06/07/17 - Primary Discharge Diagnosis Active and Suspected Problems Shoulder pain (Acute) - Secondary Discharge Diagnosis Chronic Problems Intractable left shoulder pain (Chronic) HTN (hypertension) (Chronic) Chronic pain syndrome (Chronic) Dry eye syndrome (Chronic) Chronic constipation (Chronic) Hospital Course and Treatment Imaging Results: Clinical Impression(s) from Imaging Studies KUB X-Ray 06/05/17 17:33 IMPRESSION: No bowel obstruction. Fecal impaction in the rectal vault. Electronically Signed: Wilfredo Pozo at 18:45 EDT Tel , Service support , Shoulder X-Ray 06/05/17 17:33 IMPRESSION: Stable osteopenia with osteoarthritic changes. 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 Constipation resolved with treatment 3. Hypertension-blood pressure controlled, home medications continued with dose adjustment as needed 4. Inflammatory polyarthropathy vision is followed by rheumatology as outpatient 5. DVT prophylaxis SC Lovenox CODE STATUS DNR CCA Discharge Diet: No Restrictions Discharge Activity: May not drive while taking narcotic pain medications. Home Medications: Medications to take at Discharge Aspirin [Aspirin, Baby] 81 mg PO DAILY 07/26/16 Calcium Carbonate/Vitamin D3 [Calcium 500 mg Chewable Tablet] 1 tab PO BID 07/26/16 Carvedilol [Coreg (Beta Lisandro)] 37.5 mg PO BID 07/26/16 CycloSPORINE Ophthalmic [Restasis Ophthalmic] 1 drop EACH EYE BID 07/26/16 Losartan Potassium 100 mg PO DAILY 07/26/16 Erythromycin Ophthalmic 1 applic OPHTHALMIC QHS 07/27/16 Polyethylene Glycol 3350 [Miralax] 17 gm PO DAILY 02/11/17 Acetaminophen [Tylenol Tablet] 650 mg PO Q6H PRN PRN tablet 06/07/17 Primary Care Physician: Nasir Jacob MD [Primary Care Provider] - Please follow up with your Primary Care Physician in: in 1-2 weeks Please Follow Up With: Jimmy Hines MD When: in 1-2 weeks Disposition: Home with Home Health Minutes spent on discharge:: 35 Medical Necessity - Tobacco Use Smoking Status: Never smoker Tobacco Use: Non-smoker Meaningful Use Info Meaningful Use Diagnoses (Choose all that apply): None applicable Code Visit OBSV E&M: 40522 Observation care discharge
--- NOTE | 2017-06-07 13:12 | CASEMGMT ---
Social Work Note Pt is being discharged today but needs transportation set up. Per RN Alon pt doesn't need to go by Wheelchair van and she is able to get in and out of the car. SW placed call to hospital transportation and set transportation up for 1:40pm. Pt informed Charge Nurse Viridiana that pt needs to be down to the main entrance at 1:40 for transportation. SW informed pt of this. Plan: Discharge home Emilia Simons [employer], [employer]SE AND [employer]IVER
--- NOTE | 2017-06-07 13:30 | CASEMGMT ---
MAHENDRA TRIVEDI Face to Face with patient for initial transition planning/care coordination assessment. RN FAROOQ introduced self and role at [facility]. Patient sitting in chair, alert and oriented. Patient willing to participate in assessment and is able to answer all questions appropriately. Care providers, pharmacy, and demographics verified. Patient lives alone in 1 story home. Patient states that she is independent at home. DME consists of a shower chair. Patient wishes to discharge home and states that she would like [facility] and is agreeable to [facility]. Patient states he has no further needs or concerns at this time. Referral sent to [facility] and they are able to accept the paitent. CM to follow for discharge planning needs that may arise. Disposition Plan: Patient to discharge home with [facility] and follow-up plans in place.
[2017-06-07 13:40] VITALS: BP 138/67; PULSE 71; RESP 16; TEMP 37.1; O2SAT 98
== END 2017-06-07 13:55 | disposition home health service (06) ==
LOC: ED 19:14 → MS3 22:03
PROVIDERS: Admitting Provider Family Medicine; Emergency Provider Emergency Medicine; Family Provider Family Medicine; PCP Family Medicine; Visit Provider Internal Medicine
DX: M25.512 Pain in left shoulder (principal); I10 Essential (primary) hypertension; G89.4 Chronic pain syndrome; H04.123 Dry eye syndrome of bilateral lacrimal glands; K59.09 Other constipation; M06.4 Inflammatory polyarthropathy; Z66 Do not resuscitate; M85.822 Other specified disorders of bone density and structure, left upper arm; Z79.899 Other long term (current) drug therapy; Z79.82 Long term (current) use of aspirin; M19.012 Primary osteoarthritis, left shoulder; Z79.891 Long term (current) use of opiate analgesic
CPT/HCPCS: 36415; 73030; 74018; 80048; 83735; 84443; 85025; 85027; 96361; 96372; 96374; 96376; 97110; 97161; 97166; 97535; 97802; 99218; 99285; J7030; J7050; A4216; G0378; J0702

== ENCOUNTER → 2017-09-27 10:10 | Outpatient (CLI) | payer MEDICARE, SELFPAY ==
[2017-09-27 12:41] LABS: Absolute Lymphocyte Count 0.82 X10^3/ul (0.83-4.51); Absolute Neutrophil Count 2.2 X10^3/uL (2.0-7.7); Basophil# 0.03 X10^3/uL; Basophil% 0.8 % (0-1); Eosinophil# 0.13 X10^3/uL; Eosinophils% 3.6 % (0-5); Hematocrit 39.9 % (37-47); Hemoglobin 13.4 g/dl (12.0-15.0); Lymphocyte # 0.82 X10^3/ul (4.0); Lymphocyte % 22.5 % (19-41); Mean Corp Hgb Conc 33.6 g/gl (32-36); Mean Corpuscular Hgb 32.4 pg (27.0-32.0); Mean Corpuscular Volume 96.4 fL (81-99); Mean Platelet Vol. 10.1 fl (6.2-12.0); Monocyte# 0.49 X10^3/uL; Monocyte% 13.5 % (0-10); Neutrophil # 2.17 X10^3/uL (2.7-7.7); Neutrophil % 59.6 % (47-70); Platelet Count 165 K/mm3 (150-450); RBC Distribution Width CV 11.8 % (11.6-14.6); RBC Distribution Width SD 40.4 fl (35.1-43.9); Red Blood Count 4.14 M/mm3 (4.2-5.4); White Blood Count 3.6 K/mm3 (4.4-11.0)
[2017-09-27 12:52] LABS: POSITIVE COUNT NO; POSITIVE DIFFERENTIAL NO; POSITIVE MORPHOLOGY NO
[2017-09-27 13:04] LABS: AST(SGOT) 22 U/L (15-37); Alanine Aminotransfer ALT/SGPT 20 U/L (13-56); Albumin, Serum 3.4 g/dL (3.2-5.0); Alkaline Phosphatase 67 U/L (45-117); Anion Gap 6 (5-15); BUN 12 mg/dL (7-18); BUN/Creat Ratio 14.5 RATIO (10-20); Calcium,Total 9.1 mg/dL (8.5-10.1); Chloride 105 mmol/L (98-107); Creatinine, Serum 0.83 mg/dL (0.55-1.02); EST Glomerular Filtration Rate 70 mL/min (>60); Est Glom Filt Rate - Afr Amer 85 mL/min (>60); Globulin 3.4 g/dL (2.2-4.2); Glucose 73 mg/dL (74-106); Potassium 4.2 mmol/L (3.5-5.1); Protein, Total 6.8 g/dL (6.4-8.2); Sodium Level 143 mmol/L (136-145)
== END ==
PROVIDERS: Family Provider Family Medicine; PCP Family Medicine; Visit Provider Internal Medicine Rheumatology
DX: M06.4 Inflammatory polyarthropathy (principal); M35.00 Sjogren syndrome, unspecified; M17.0 Bilateral primary osteoarthritis of knee; M16.0 Bilateral primary osteoarthritis of hip; M81.0 Age-related osteoporosis without current pathological fracture; H40.9 Unspecified glaucoma
CPT/HCPCS: 36415; 80053; 85025

== ENCOUNTER → 2018-09-27 13:38 | Outpatient (CLI) | payer MEDICARE, SELFPAY ==
[2018-09-08 14:07] VITALS: BMI 23.1
--- NOTE | 2018-09-27 13:43 | ECHOCS_ITS ---
Reason For Study: CMP Procedure This was a 2D Doppler, Color Flow transthoracic echocardiogram. The study was technically difficult. Contrast injection was performed. Exam performed in department. Left Ventricle Normal LV size. Moderate global left ventricular systolic dysfunction. The estimated ejection fraction is 30 %. Septal motion consistent with IVCD. There is evidence of diastolic dysfunction. Right Ventricle Normal RV size. Normal systolic function. Atria Normal left atrium. Normal right atrium. No doppler evidence for ASD. Mitral Valve There is no mitral annular calcification. Mild diffuse mitral valve thickening. Moderate (2+) mitral valve insufficiency. Tricuspid Valve Normal tricuspid valve. Mild to moderate (1-2+) tricuspid valve insufficiency. Right ventricular systolic pressure estimated to be 31 mmHg. Aortic Valve Trisinus/trileaflet aortic valve. Mild focal aortic valve calcification. Pulmonic Valve The pulmonic valve is not well visualized. Great Vessels Normal sized aortic root. Pericardium/Pleural No pericardial effusion. Medication 22 gauge I.V. with prn adaptor inserted into right arm. Diluted definity 2ml given slow IV push to enhance endocardial definition. MMode/2D Measurements & Calculations LVIDd: 4.3 cm IVSd: 0.70 cm Ao root diam: 2.5 cm LVIDs: 3.1 cm LVPWd: 1.0 cm LA dimension: 3.2 cm RVDd: 3.2 cm FS: 27.2 % LAV(MOD-bp): 34.7 ml LVAd ap4: 22.8 cm2 SV(MOD-sp4): 26.9 ml LAV(MOD-bp) Indexed: 25.4 ml/m2 EDV(MOD-sp4): 64.3 ml LAV(MOD-sp2): 35.0 ml EDV(sp4-el): 64.6 ml LAV(MOD-sp4): 32.3 ml LVAs ap4: 16.2 cm2 ESV(MOD-sp4): 37.5 ml ESV(sp4-el): 38.6 ml EF(MOD-sp4): 41.7 % EF(sp4-el): 40.3 % SV(sp4-el): 26.0 ml LA A4 area: 14.0 cm2 RA A4 area: 12.7 cm2 Time Measurements MV dec time: 0.18 sec Doppler Measurements & Calculations MV E max lee: 67.4 cm/sec Lat Peak E' Lee: 8.5 cm/sec Med Peak E' Lee: 4.6 cm/sec MV A max lee: 127.8 cm/sec E/E' lat: 7.9 E/E' med: 14.7 MV E/A: 0.53 MV V2 max: 136.8 cm/sec MV P1/2t max lee: 79.9 cm/sec Ao V2 max: 132.1 cm/sec MV max P.5 mmHg MV P1/2t: 93.7 msec Ao max P.0 mmHg MV V2 mean: 66.8 cm/sec MV mean P.2 mmHg MV dec slope: 249.9 cm/sec2 MV V2 VTI: 34.6 cm MVA(P1/2t): 2.3 cm2 LV V1 max: 77.1 cm/sec MR max lee: 504.7 cm/sec PA V2 max: 98.2 cm/sec LV V1 max P.4 mmHg MR max P.9 mmHg TR max lee: 266.2 cm/sec TR max P.3 mmHg Interpretation Summary The study was technically difficult. Contrast injection was performed. Moderate global left ventricular systolic dysfunction. The estimated ejection fraction is 30 %. Septal motion consistent with IVCD. Mild diffuse mitral valve thickening. Moderate (2+) mitral valve insufficiency. Mild to moderate (1-2+) tricuspid valve insufficiency. Mild focal aortic valve calcification. Right ventricular systolic pressure estimated to be 31 mmHg. There is evidence of diastolic dysfunction. Ordering Physician: Maicol Martinez Referring Physician: Maicol Martinez Performed By: Milton Storm RCS
== END ==
PROVIDERS: Family Provider Family Medicine; PCP Family Medicine; Referring Provider Internal Medicine Cardiovascular Disease; Visit Provider Internal Medicine Cardiovascular Disease
DX: I42.9 Cardiomyopathy, unspecified (principal); I44.7 Left bundle-branch block, unspecified
CPT/HCPCS: 93306; Q9957; A4216; C8929

== ENCOUNTER 2019-11-11 22:11 | Emergency (ER) | payer MEDICARE, SELFPAY ==
[2019-03-16 11:16] VITALS: BMI 22.3
[2019-11-11 22:13] VITALS: BP 134/65; PULSE 69; RESP 16; TEMP 36.5; O2SAT 97; BMI 23.8
--- NOTE | 2019-11-11 22:41 | RAD_ITS ---
STUDY: X-RAY - LEFT SHOULDER REASON FOR EXAM: Female, 83 years old. Chronic left shoulder pain. TECHNIQUE: 4 view(s) of the shoulder. COMPARISON: Previous exam 06/05/2017. FINDINGS: There is worsening glenohumeral joint space narrowing with enlarging osteophyte formation of the glenoid and humeral head. There is subchondral sclerosis. There is generalized osteopenia of the regional bones. No acute fractures. RAD/Shoulder min 2 Views IMPRESSION: Worsening severe left glenohumeral osteoarthrosis no acute fractures Generalized osteopenia regional bones Electronically Signed: Freeman Thomas, at 1:36 EDT Tel , Service support ,
[2019-11-11] MEDS: 0.9% Normal Saline 1,000 ML 1000 ML IV (22:48)
[2019-11-11 22:54] LABS: Absolute Lymphocyte Count 0.68 X10^3/uL (0.83-4.51); Absolute Neutrophil Count 5.8 X10^3/uL (2.0-7.7); Basophil# 0.02 X10^3/uL; Basophil% 0.3 % (0-1); Eosinophil# 0.02 X10^3/uL; Eosinophils% 0.3 % (0-5); Hematocrit 35.8 % (37-47); Hemoglobin 12.1 g/dL (12.0-15.0); Lymphocyte # 0.68 X10^3/ul (4.0); Lymphocyte % 9.6 % (19-41); Mean Corp Hgb Conc 33.8 g/dL (32-36); Mean Corpuscular Hgb 32.6 pg (27.0-32.0); Mean Corpuscular Volume 96.5 fL (81-99); Mean Platelet Vol. 9.4 fl (6.2-12.0); Monocyte# 0.56 X10^3/uL; Monocyte% 7.9 % (0-10); NRBC Flagged by Analyzer 0 % (0-5); Neutrophil # 5.75 X10^3/uL (2.7-7.7); Neutrophil % 81.6 % (47-70); Platelet Count 164 K/mm3 (150-450); RBC Distribution Width CV 11.6 % (11.6-14.6); RBC Distribution Width SD 41.2 fl (35.1-43.9); Red Blood Count 3.71 M/mm3 (4.2-5.4); White Blood Count 7.1 K/mm3 (4.4-11.0)
[2019-11-11 23:12] LABS: AST(SGOT) 20 U/L (15-37); Alanine Aminotransfer ALT/SGPT 17 U/L (13-56); Albumin, Serum 3.2 g/dL (3.2-5.0); Alkaline Phosphatase 74 U/L (45-117); Anion Gap 5 (5-15); BUN 20 mg/dL (7-18); BUN/Creat Ratio 21.9 RATIO (10-20); Calcium,Total 8.5 mg/dL (8.5-10.1); Chloride 104 mmol/L (98-107); Creatinine, Serum 0.91 mg/dL (0.55-1.02); EST Glomerular Filtration Rate 62 mL/min (>60); Est Glom Filt Rate - Afr Amer 75 mL/min (>60); Estimated Creatinine Clearance 36.32 ml/min; Globulin 3.2 g/dL (2.2-4.2); Glucose 110 mg/dL (74-106); Lipase 67 U/L (73-393); Protein, Total 6.4 g/dL (6.4-8.2); Sodium Level 136 mmol/L (136-145)
[2019-11-11 23:45] LABS: Bacteria 0 SEEN /hpf (None Seen); Mucous, Urine 0 SEEN /hpf (<or=2+); Squamous Epithelial Cells - UA 0 SEEN /hpf (5-10); White Blood Cells 0 SEEN /hpf (0-5)
[2019-11-11 23:50] LABS: Color, Urine Yellow (Yellow); Urine Clarity Clear (Clear)
[2019-11-11 23:51] LABS: Glucose, Dipstick Normal (Normal); Ketone-Dipstick 5 mg/dl (Negative); Leukocyte Esterase-Dipstick Negative /ul (Negative); Nitrite-Dipstick Negative (Negative); Occult Blood-Urine 250 /ul (Negative); Protein-Dipstick Negative (Negative); Specific Gravity, Urine 1.015 (1.002-1.030); Urine Bilirubin Dipstick Negative (Negative); Urine Urobilinogen Normal (Normal)
[2019-11-11 23:58] LABS: Red Blood Cells-Urine 5-10 SEEN /hpf (0-5)
--- NOTE | 2019-11-12 00:20 | CT_ITS ---
STUDY: CT ABDOMEN AND PELVIS WITH CONTRAST REASON FOR EXAM: Female, 83 years old. ABD PAIN AND BACK PAIN AFTER FALL TODAY. Hx of Parkinson''s and HTN RADIATION DOSAGE (If Supplied By Facility): CTDIvol = ( 14.44 ) mGy, DLP = ( 976.37 ) mGycm TECHNIQUE: Transaxial images were obtained from the dome of the diaphragm to the symphysis pubis with oral contrast. 75mL Isovue-370 was administered. Sagittal and coronal images were reconstructed. Individualized dose optimization techniques were used for this CT. COMPARISON: None. FINDINGS: The visualized lung bases are unremarkable. The visualized portions of the heart are within normal limits. Normal liver. Normal gallbladder and extrahepatic biliary system. Normal spleen. Normal pancreas. Normal bilateral adrenal glands. Normal right kidney. Normal left kidney. Normal visualized stomach. Normal small intestine. There is prominent colonic feces, consistent with constipation. There is fecal distention of the rectum which is likely to represent fecal impaction. Apparent mural thickening of the lower rectum may represent reactive changes due to rectal distention. Underlying lower rectal lesion cannot be excluded. A very diminutive normal appendix is seen posterior medial to the cecum on axial images 74-76. There is diffuse atherosclerotic calcification of the abdominal aorta, without a demonstrated aneurysm. Normal inferior vena cava. Normal retroperitoneum. Normal urinary bladder. Normal abdominal wall. There are diffuse degenerative changes of the visualized lumbar spine. There is a left hip prosthesis. CT/Abdomen/Pelvis WITH Contrast IMPRESSION: Constipation, probably with fecal impaction. Mural thickening of the lower rectum may represent reactive changes due to rectal distention. However, underlying rectal lesion cannot be excluded. Would consider follow-up proctoscopy. Atherosclerosis. No evidence for acute pathology. No evidence for significant internal injury. Electronically Signed: Carlo Hamlin MD at 2:12 EDT , Service support ,
--- NOTE | 2019-11-12 00:20 | CT_ITS ---
STUDY: CT LUMBAR SPINE WITHOUT CONTRAST REASON FOR EXAM: Female, 83 years old. ABD PAIN AND BACK PAIN AFTER FALL TODAY. Hx of Parkinson''s and HTN RADIATION DOSAGE (If Supplied By Facility): CTDIvol = ( 14.44 ) mGy, DLP = ( 976.37 ) mGycm TECHNIQUE: The patient was scanned in a multi detector CT scanner. High resolution transaxial imaging was performed. Sagittal. And coronal images were reconstructed. Individualized dose optimization techniques were used for this CT. COMPARISON: None FINDINGS: Normal lumbar lordosis. There are multilevel facet degenerative changes. There is lumbar spine dextroscoliosis with multilevel degenerative changes. The streak artifact from a left hip prosthesis. No acute fractures L1-2: Disc space narrowing broad-based posterior bulging annulus small posterior disc protrusion mild central canal narrowing mild left no right foraminal stenosis L2-3: Mild disc osteophyte complex mild central canal narrowing. Mild to moderate left foraminal stenosis no right foraminal stenosis L3-4: Disc space narrowing mild disc osteophyte complex and ligamentous hypertrophy and mild central canal stenosis mild left, no right foraminal stenosis L4-5: There is mild disc osteophyte complex no central canal stenosis. Mild to moderate facet degenerative changes. Mild right foraminal stenosis no left foraminal stenosis L5-S1: There is mild disc space narrowing disc osteophyte complex no central canal stenosis. Moderate facet degenerative changes. Mild left and moderate right foraminal stenosis. Normal visualized paraspinous soft tissue structures. There is multilevel facet bony sclerosis. There is moderate colonic fecal load with mild colonic distention involving the sigmoid colon. The rectum is not included on the [id number].. There is contrast within the small bowel and stomach. CT/Spine Lumbar without Contrast IMPRESSION: Multilevel spondylosis, no fractures Lumbar spine dextroscoliosis Streak artifact from left hip prosthesis Likely colonic fecal impaction Electronically Signed: Freeman Thomas, at 1:33 EDT Tel , Service support ,
[2019-11-12 02:12] VITALS: BP 135/71; PULSE 71; RESP 16; O2SAT 100
--- NOTE | 2019-11-12 02:33 | ED.VISSUMM ---
- ER Visit Summary Date of Service: 11/12/19 Chief Complaint: Abdominal pain and fall History of Present Illness: The patient is a 83 F who presents with abdominal pain that began after a fall tonight. Patient states her pain is cramping and worse over the lower abdomen. Patient has a history of Parkinson's with frequent falls. Patient fell tonight and has been complaining of pain in her back. Patient also states that her abdominal pain began tonight. Patient states she feels like she has large amount of stool in her lower rectum but is unable to pass it. Patient states she has been having some watery stools. Patient denies any nausea or vomiting. Patient states nothing makes her pain better or worse. Patient denies any dysuria or hematuria. Patient also complains of pain in her left shoulder. Physical Examination: Vital signs are stable. Patient is afebrile. Patient is in no acute distress. Musculoskeletal exam reveals mild tenderness over the left shoulder. Range of motion was limited in all motions of the left shoulder secondary to pain. There is also some mild tenderness over the lumbar spine and paraspinal muscles. Oral mucosa is pink and moist. Neck is supple. Trachea is midline. There is no JVD. Heart was regular rate and rhythm. Lungs are clear and equal bilaterally. Abdomen is soft. Bowel sounds are normal. There is some lower abdominal tenderness. There is no rebound or guarding noted. Cranial nerves II through XII are intact. There are no focal motor or sensory deficits noted. Test Results: X-rays of the left shoulder were obtained. There are degenerative changes but no acute fracture. There is osteopenia noted. CT scan of the lumbar spine was obtained. There are degenerative changes. There is no acute fracture. CT scan of the abdomen pelvis was obtained. There is a fecal impaction noted in the rectum. There is some mural thickening of the lower rectum. These were interpreted by the radiologist and reviewed by myself. CBC and comprehensive metabolic profile were obtained and were essentially within normal limits. Urinalysis shows occult blood of 250 with 5-10 red blood cells. There is no evidence of urinary tract infection. Emergency Department Course and Treatment: Patient was given IV fluids. Patient was given a soapsuds enema. Patient had minimal results with this. Patient was instructed to continue MiraLAX at home. Patient was instructed to use fleets enemas as needed. Patient was instructed to follow-up with her primary care physician in 5 to 7 days. Patient and family understood and were agreeable with the plan. All questions were answered. Disposition: Discharge home Impression: Constipation This note was generated with [employer] dictation software. It may contain incorrect words, spelling, and punctuation that were not noted in review of the chart prior to signing ED Disposition - Plan for ED Patient: Disposition: Home or Assisted Living Diagnosis: Constipation Instructions: ED Constipation Referrals: Erik Núñez MD [Primary Care Provider] - 3-5 Days
[2019-11-12 04:15] VITALS: BP 130/67; PULSE 78; RESP 15; O2SAT 95
== END 2019-11-12 04:59 | disposition home or self-care (01) ==
PROVIDERS: Emergency Provider Emergency Medicine; PCP Family Medicine
DX: K59.00 Constipation, unspecified (principal); I10 Essential (primary) hypertension; G20 Parkinson's disease; R29.6 Repeated falls; Z79.82 Long term (current) use of aspirin; Z79.899 Other long term (current) drug therapy
CPT/HCPCS: 72131; 73030; 74177; 80053; 81001; 83690; 85025; 96360; 96361; 99284; J7030; Q9967; A4216

== ENCOUNTER 2019-11-27 22:09 | Emergency (ER) | payer MEDICARE, SELFPAY ==
[2019-11-27 22:10] VITALS: BP 167/76; PULSE 67; RESP 16; TEMP 37; O2SAT 95; BMI 22.6
--- NOTE | 2019-11-27 22:20 | ED.VIS.GEN ---
History of Present Illness Chief Complaint: Lower Extremity Injury Informant: Patient Limited by: Dementia Onset: Days Context: Gradual Onset Timing: Continuous Current Severity: Moderate Maximum Severity: Moderate Narrative: The patient is an 83-year-old female medical history significant for constipation, osteoporosis, and prior left hip replacement the presents to the emergency department left hip pain. The patient had a mechanical fall on the 10th of this month. She was here shortly after with some abdominal pain. She had a CT of her lumbar spine which did not show any fracture. She had a CT of her abdomen pelvis which showed no evidence of fracture but did show constipation. She states for the past 3 days, she is had some pain in the hip when trying to ambulate. She did not fall. She denies new injury. She denies any fevers or chills. She states she is otherwise been in her normal state of health. She does have home health care with her at all times. Prior similar symptoms: Yes Recent Illness/Hospitalization: No Past Medical History - Allergies and Home Meds Allergies/Adverse Reactions: Allergies No Known Allergies Allergy (Verified 11/27/19 22:14) Primary Care Physician: Erik Núñez MD [Primary Care Provider] - Prior records reviewed: Yes Past Medical History: - - Hypertension, osteoporosis Surgical History: - - L THR, D+C. Smoking Status: Never smoker - Family History Maternal Family History: Family History (Last Reviewed 03/16/19 @ 14:36 by Matthew Vazquez NP, RETAIL BUSINESS ANALYST-C) Father CAD (coronary artery disease) Hypertension Mother CVA (cerebral vascular accident) Hypertension Grandfather CAD (coronary artery disease) Grandfather CVA (cerebral vascular accident) Family History: Reports: - - Maternal family history of stroke. Paternal Family History: Family History (Last Reviewed 03/16/19 @ 14:36 by Matthew Vazquez NP, RETAIL BUSINESS ANALYST-C) Father CAD (coronary artery disease) Hypertension Mother CVA (cerebral vascular accident) Hypertension Grandfather CAD (coronary artery disease) Grandfather CVA (cerebral vascular accident) Family History: Reports: - - Paternal family history of hypertension, colorectal cancer. Review of Systems General: Denies: Chills, Fever, Sweats Eyes: Denies: Visual changes - bilaterally, Diplopia ENT: Denies: Rhinorrhea, Sore throat Cardiovascular: Denies: Chest pain, Palpitations Respiratory: Denies: Dyspnea, Cough, Dyspnea on exertion Gastrointestinal: Denies: Abdominal pain, Nausea, Vomiting, Diarrhea, Melena, Hematochezia Genitourinary: Denies: Dysuria, Hematuria, Frequency Musculoskeletal: Reports: Arthralgias. Denies: Back pain, Extremity Pain Skin: Denies: Rash, Wounds Neurological: Denies: Headache, Weakness, Numbness Physical Exam Vital Signs/Narrative: Vital Signs Temp Pulse Resp BP Pulse Ox 11/27/19 22:10 98.6 F 67 16 167/76 H 95 Inital Vital Signs reviewed: Yes General: Well nourished, Well developed, No Acute Distress Head: Normocephalic, Atraumatic Eyes: Perrl, EOMI ENT: Moist mucous membranes, No rhinorrhea Neck: Supple, Nontender Cardiovascular: Regular rate, Regular rhythm, No murmurs Respiratory: No distress, CTA bilaterally, Chest nontender Abdomen: Soft, Nontender, Nondistended, Normal bowel sounds Back: Nontender, Normal Inspection Extremities: Nontender, No edema Skin: Normal color, No rash Neurological: Alert, Oriented x3, Cranial nerves II-XII grossly intact, Normal Strength, Normal Sensation Psychological: Normal affect, Normal Mood Diagnostic/Tx/Re-eval Clinical Impression(s) from Imaging Studies Femur X-Ray 11/27/19 22:44 IMPRESSION: 1. No recent fracture or acute disease identified. 2. Left total hip prosthesis in place. No complication seen. at 2318 Reported and signed by: Pito Park MD Electronically Signed: Pito Park at 23:15 EDT Tel , Service support , Pelvis X-Ray 11/27/19 22:44 IMPRESSION: 1. No recent fracture or acute disease identified. 2. Left total hip prosthesis in place. No complication seen. 3. Right hip chronic osteoarthritis. at 2312 Reported and signed by: Pito Park MD Electronically Signed: Pito Park at 23:11 EDT Tel , Service support , - Medical Decision Making Patient presents with left hip pain. She did have a fall 2 weeks ago. The patient is nonambulatory. She does transfer into a power wheelchair. She has normal pulses of the lower extremity. Her straight leg raise is negative. She is mildly tender in the gluteal area, but there is no evidence of abscess or skin breakdown. I did obtain plain films. These do show some arthritis. Patient had already received Tylenol was still complaining of pain. She was given 2 mg of IM morphine with little improvement. At this point, she has no evidence of fracture. I do feel some of this may be consistent with radiculopathy. I will treat her with a short burst of steroids and analgesics. She will continue stool softeners. She will be discharged home. Impression 1. Left hip contusion ED Disposition - Plan for ED Patient: Instructions: ED Sprain Hip Prescriptions: Prednisone [Deltasone] 40 mg PO DAILY #10 tab Prescription Printed Oxycodone [Oxyir] 2.5 mg PO Q8H PRN PRN 3 Days #8 tab PRN Reason: Pain Score 6-10/10 Prescription Printed Referrals: Erik Núñez MD [Primary Care Provider] -
--- NOTE | 2019-11-27 22:44 | RAD_ITS ---
HISTORY: FALL 3 WEEKS AGO, CONTINUED PAIN TO LEFT HIP/ LEG EXAMINATION/TECHNIQUE: XR Pelvis 1 View: COMPARISON: CT abdomen and pelvis 11/12/2019 FINDINGS: Generalized bony demineralization consistent with the patient's age. No dislocation or acute fracture identified. Left total hip prosthesis which appears stable and in good position. Osteoarthritis with moderate narrowing of the right hip joint. Degenerative disc disease and degenerative spondylosis of the lower lumbar spine. The SI joints are not widened. RAD/Pelvis 1 or 2 Views IMPRESSION: 1. No recent fracture or acute disease identified. 2. Left total hip prosthesis in place. No complication seen. 3. Right hip chronic osteoarthritis. at 9992 Reported and signed by: Pito Park MD Electronically Signed: Pito Park, at 23:11 EDT Tel , Service support ,
--- NOTE | 2019-11-27 22:44 | RAD_ITS ---
HISTORY: FALL 3 WEEKS AGO, CONTINUED PAIN TO LEFT HIP/ LEG EXAMINATION/TECHNIQUE: XR left femur 4 views COMPARISON: CT abdomen and pelvis 11/12/2019 FINDINGS: Generalized bony demineralization consistent with the patient's age. Total left hip prosthesis which appears in good position. No prosthetic loosening identified. Normal distal left femur. No suspicious bony lesion. RAD/Femur Min 2 Views IMPRESSION: 1. No recent fracture or acute disease identified. 2. Left total hip prosthesis in place. No complication seen. at 2317 Reported and signed by: Pito Park MD Electronically Signed: Pito Park, at 23:15 EDT Tel , Service support ,
[2019-11-27] MEDS: Morphine 2 MG/ML Syringe IM (23:43)
[2019-11-28 00:15] VITALS: BP 158/77; PULSE 69; RESP 15; O2SAT 97
[2019-11-28] MEDS: oxyCODONE 5 MG Tablet 2.5 MG PO (00:33)
[2019-11-28] MEDS: predniSONE 20 MG Tablet 60 MG PO (00:33)
[2019-11-28 00:53] VITALS: BP 160/70; PULSE 75; RESP 21; O2SAT 93
== END 2019-11-28 00:54 | disposition home or self-care (01) ==
LOC: ED 22:53
PROVIDERS: Emergency Provider Emergency Medicine; PCP Family Medicine
DX: S70.02XA Contusion of left hip, initial encounter (principal); Z96.642 Presence of left artificial hip joint; X58.XXXA Exposure to other specified factors, initial encounter
CPT/HCPCS: 72170; 73552; 96372; 99285

== ENCOUNTER 2019-12-09 20:46 | Emergency (ER) | payer MEDICARE, SELFPAY ==
[2019-12-09 20:48] VITALS: BP 93/54; PULSE 71; RESP 16; TEMP 36.7; O2SAT 96; BMI 21.7
--- NOTE | 2019-12-09 21:26 | CT_ITS ---
HISTORY: CONSTIPATION, HX BOWEL OBSTRUCTION, PARKINSON'S, CHF, HTN ADDITIONAL HISTORY: None provided. EXAMINATION/TECHNIQUE: CT Abdomen And Pelvis W/ Contrast Injection CONTRAST: IV 100mL Isovue-300 IV contrast. Enteric contrast was not given. A radiation dose optimization technique was used for this scan. Number of images including paperwork: [id number] COMPARISON: 11/12/2019 FINDINGS: LOWER THORAX: No consolidation or pleural effusion. LIVER: No concerning focal lesion. GALLBLADDER: Small gallstone in the dependent gallbladder. BILE DUCTS: No significant biliary dilatation. SPLEEN: Unremarkable. PANCREAS: Unremarkable. ADRENAL GLANDS: Unremarkable. KIDNEYS/URETERS: Unremarkable. BOWEL: Large amount of stool in the rectum. Rectal wall thickening with surrounding edema, possibly stercoral proctitis. Thickening is more circumferential distally and mass not excluded, as before. Fluid is present in the colon elsewhere, possibly iatrogenic from laxative administration or related to diarrheal illness. No dilated loops of small bowel. APPENDIX: No evidence of appendicitis. FREE FLUID: No significant free fluid. FREE AIR: None. LYMPH NODES: No pathologic appearing adenopathy. PERITONEUM, RETROPERITONEUM AND MESENTERY: Otherwise unremarkable. VASCULATURE: Atherosclerotic calcification. PELVIS: Unremarkable bladder. ABDOMINAL WALL: Unremarkable. OSSEOUS AND SOFT TISSUE STRUCTURES: No acute skeletal findings. Compression deformity of T10 appears similar. Degenerative changes. Left hip prosthesis. CT/Abdomen/Pelvis W IV Cont ONLY IMPRESSION: 1. Large amount of stool in the rectum suggesting fecal impaction. 2. Rectal wall thickening with surrounding edema may be related to stercoral proctitis. Underlying mass not excluded. 3. Additional findings above. Individualized dose optimization techniques were used for this CT. at 2245 Reported and signed by: Zofia Freire MD Electronically Signed: Zofia Freire MD at 22:45 EDT Tel , Service support ,
--- NOTE | 2019-12-09 21:27 | ED.VIS.GEN ---
History of Present Illness Chief Complaint: Constipation Informant: Patient Narrative: 83-year-old female presenting with abdominal pain, constipation, inability urinate for the last couple of days. She states it might even be 5 days. Patient is a poor informant. Patient states that she does not have nausea or vomiting. She states that she feels like she is impacted although she also has abdominal pain. There is reported history of small bowel obstruction as well. States that she does not have this history. - Past Medical History (1) Essential hypertension Status: Chronic (2) LBBB (left bundle branch block) Status: Chronic (3) Nonischemic cardiomyopathy Status: Chronic Past Medical History - Allergies and Home Meds Allergies/Adverse Reactions: Allergies No Known Allergies Allergy (Verified 12/09/19 20:47) Primary Care Physician: Erik Núñez MD [Primary Care Provider] - Prior records reviewed: Yes Past Medical History: - - Reviewed in problem list Surgical History: noncontributory, - - L THR, D+C. Lives: Alone Smoking Status: Never smoker Alcohol: None Drugs: None - Family History Maternal Family History: Family History (Last Reviewed 03/16/19 @ 14:36 by Matthew Vazquez NP, ADMINISTRATIVE PROFESSIONAL-C) Father CAD (coronary artery disease) Hypertension Mother CVA (cerebral vascular accident) Hypertension Grandfather CAD (coronary artery disease) Grandfather CVA (cerebral vascular accident) Family History: Reports: - - Maternal family history of stroke. Paternal Family History: Family History (Last Reviewed 03/16/19 @ 14:36 by Matthew Vazquez NP, ADMINISTRATIVE PROFESSIONAL-C) Father CAD (coronary artery disease) Hypertension Mother CVA (cerebral vascular accident) Hypertension Grandfather CAD (coronary artery disease) Grandfather CVA (cerebral vascular accident) Family History: Reports: - - Paternal family history of hypertension, colorectal cancer. Review of Systems General: Denies: Chills, Fever, Sweats Eyes: Denies: Visual changes - bilaterally, Diplopia ENT: Denies: Rhinorrhea, Sore throat Cardiovascular: Denies: Chest pain, Palpitations Respiratory: Denies: Dyspnea, Cough, Dyspnea on exertion Gastrointestinal: Reports: Abdominal pain, Constipation. Denies: Nausea, Vomiting, Diarrhea, Melena, Hematochezia Genitourinary: Reports: - - Difficulty urinating Musculoskeletal: Denies: Back pain, Extremity Pain Skin: Denies: Rash, Wounds Neurological: Denies: Headache, Weakness, Numbness Physical Exam Vital Signs/Narrative: Vital Signs Temp Pulse Resp BP Pulse Ox 12/09/19 20:48 98.0 F 71 16 93/54 L 96 Inital Vital Signs reviewed: Yes General: Well nourished, No Acute Distress Head: Normocephalic, Atraumatic Eyes: Perrl, EOMI ENT: Moist mucous membranes, No rhinorrhea Cardiovascular: Regular rate, Regular rhythm Respiratory: No distress, CTA bilaterally Abdomen: Soft, Tender - Generalized abdominal tenderness Rectal: - - Fecal impaction at the rectal verge Extremities: Nontender, No edema Skin: Normal color, No rash Neurological: Alert, Cranial nerves II-XII grossly intact Psychological: Normal affect, Normal Mood Diagnostic/Tx/Re-eval Clinical Impression(s) from Imaging Studies Abdomen/Pelvis CT 12/09/19 21:26 IMPRESSION: 1. Large amount of stool in the rectum suggesting fecal impaction. 2. Rectal wall thickening with surrounding edema may be related to stercoral proctitis. Underlying mass not excluded. 3. Additional findings above. Individualized dose optimization techniques were used for this CT. at 2245 Reported and signed by: Zofia Freire MD Electronically Signed: Zofia Freire MD at 22:45 EDT Tel , Service support , Laboratory Data 12/09/19 12/09/19 12/09/19 21:50 21:50 23:05 WBC 12.8 H RBC 3.91 L Hgb 12.6 Hct 39.5 MCV 101.0 H MCH 32.2 H MCHC 31.9 L RDW Std Deviation 45.6 H RDW Coeff of Francisco 12.2 Plt Count 203 MPV 9.3 Immature Gran % (Auto) 0.500 Neut % (Auto) 87.7 H Lymph % (Auto) 5.5 L [place] % (Auto) 5.9 Eos % (Auto) 0.2 Baso % (Auto) 0.2 Absolute Neuts (auto) 11.3 H Absolute Lymphs (auto) 0.70 L Nucleated RBC % 0 Sodium 138 Potassium 4.0 Chloride 105 Carbon Dioxide 29.0 Anion Gap 4 L BUN 18 Creatinine 0.86 Estim Creat Clear Calc 33.82 Est GFR (MDRD) Af Amer 81 Est GFR (MDRD) Non-Af 67 BUN/Creatinine Ratio 21.0 H Glucose 132 H Calcium 8.5 Urine Color Yellow Urine Clarity Sl. Cloudy Urine pH 5.0 Ur Specific Henderson 1.015 Urine Protein 15 H Urine Glucose (UA) Normal Urine Ketones 15 H Urine Occult Blood 10 H Urine Nitrite Negative Urine Bilirubin Negative Urine Urobilinogen Normal Ur Leukocyte Esterase 25 H Urine RBC 0-5 SEEN Urine WBC 0-5 SEEN Ur Squamous Epith Cells 0-5 SEEN Urine Bacteria 0 SEEN Hyaline Casts 0-5 SEEN Urine Mucus 0 SEEN - Medical Decision Making Patient was seen and evaluated on arrival for abdominal pain and fecal impaction. On examination she does have some mild diffuse tenderness as well as fecal impaction. Patient had lab work which was unremarkable. CT of the abdomen pelvis shows only fecal impaction. Patient was disimpacted at the bedside with nursing assistance and then was able to have a large bowel movement and feels much improved. Analysis is negative. I feel the patient is safe to be discharged home at this time. Impression: 1. Constipation 2. Fecal impaction ED Disposition - Plan for ED Patient: Disposition: Home or Assisted Living Instructions: ED Constipation, ED Impaction Fecal Treated Referrals: Erik Núñez MD [Primary Care Provider] -
[2019-12-09 21:56] LABS: Absolute Neutrophil Count 11.3 X10^3/uL (2.0-7.7); Basophil# 0.02 X10^3/uL; Basophil% 0.2 % (0-1); Eosinophil# 0.02 X10^3/uL; Eosinophils% 0.2 % (0-5); Hematocrit 39.5 % (37-47); Hemoglobin 12.6 g/dL (12.0-15.0); Lymphocyte % 5.5 % (19-41); Mean Corp Hgb Conc 31.9 g/dL (32-36); Mean Corpuscular Hgb 32.2 pg (27.0-32.0); Mean Platelet Vol. 9.3 fl (6.2-12.0); Monocyte# 0.76 X10^3/uL; Monocyte% 5.9 % (0-10); NRBC Flagged by Analyzer 0 % (0-5); Neutrophil # 11.26 X10^3/uL (2.7-7.7); Neutrophil % 87.7 % (47-70); Platelet Count 203 K/mm3 (150-450); RBC Distribution Width CV 12.2 % (11.6-14.6); RBC Distribution Width SD 45.6 fl (35.1-43.9); Red Blood Count 3.91 M/mm3 (4.2-5.4); White Blood Count 12.8 K/mm3 (4.4-11.0)
[2019-12-09 22:09] LABS: Anion Gap 4 (5-15); BUN 18 mg/dL (7-18); Calcium,Total 8.5 mg/dL (8.5-10.1); Chloride 105 mmol/L (98-107); Creatinine, Serum 0.86 mg/dL (0.55-1.02); EST Glomerular Filtration Rate 67 mL/min (>60); Est Glom Filt Rate - Afr Amer 81 mL/min (>60); Estimated Creatinine Clearance 33.82 ml/min; Glucose 132 mg/dL (74-106); Sodium Level 138 mmol/L (136-145)
[2019-12-09 23:18] LABS: Bacteria 0 SEEN /hpf (None Seen); Mucous, Urine 0 SEEN /hpf (<or=2+)
[2019-12-09 23:57] LABS: Color, Urine Yellow (Yellow); Glucose, Dipstick Normal (Normal); Ketone-Dipstick 15 mg/dl (Negative); Leukocyte Esterase-Dipstick 25 /ul (Negative); Nitrite-Dipstick Negative (Negative); Occult Blood-Urine 10 /ul (Negative); Protein-Dipstick 15 mg/dl (Negative); Specific Gravity, Urine 1.015 (1.002-1.030); Urine Bilirubin Dipstick Negative (Negative); Urine Clarity Sl. Cloudy (Clear); Urine Urobilinogen Normal (Normal)
[2019-12-10 00:10] LABS: Hyaline Cast 0-5 SEEN /lpf (0-5); Red Blood Cells-Urine 0-5 SEEN /hpf (0-5); Squamous Epithelial Cells - UA 0-5 SEEN /hpf (5-10); White Blood Cells 0-5 SEEN /hpf (0-5)
[2019-12-10 00:33] VITALS: BP 115/79; PULSE 67; RESP 16; O2SAT 96; O2SAT 98
== END 2019-12-10 00:34 | disposition home or self-care (01) ==
PROVIDERS: Emergency Provider Student in an Organized Health Care Education/Training Program; PCP Family Medicine
DX: K56.41 Fecal impaction (principal); I11.0 Hypertensive heart disease with heart failure; I50.9 Heart failure, unspecified; I43 Cardiomyopathy in diseases classified elsewhere; I44.7 Left bundle-branch block, unspecified; G20 Parkinson's disease; Z79.82 Long term (current) use of aspirin
CPT/HCPCS: 74177; 80048; 81001; 85025; 99284; P9612; Q9967; A4216

== ENCOUNTER 2020-02-15 20:03 | Emergency (ER) | payer MEDICARE, SELFPAY ==
[2020-02-15 20:04] VITALS: BP 160/95; PULSE 83; RESP 15; TEMP 36.2; O2SAT 98; BMI 21.0
--- NOTE | 2020-02-15 20:16 | CT_ITS ---
STUDY: CT ABDOMEN AND PELVIS WITH CONTRAST REASON FOR EXAM: Female, 84 years old. ABDOMEN PAIN,URINARY RETENTION- has stephens now,constipation x 2 days -- Hx:htn,chf,Parkinson''s,Sjogrens syndrome -- Lt hip replacement RADIATION DOSAGE (If Supplied By Facility): CTDIvol = ( 10.14 ) mGy, DLP = ( 440.34 ) mGycm TECHNIQUE: Transaxial images were obtained from the dome of the diaphragm to the symphysis pubis without oral contrast. Oral and amp; IV Gastrografin and amp; 100mL Isovue-370 was administered. Sagittal and coronal images were reconstructed. Individualized dose optimization techniques were used for this CT. COMPARISON: CT abdomen and pelvis 12/09/2019 FINDINGS: The visualized lung bases are unremarkable. Cardiomegaly. Normal liver. Normal gallbladder and extrahepatic biliary system. Normal spleen. Normal pancreas. Normal bilateral adrenal glands. Normal right kidney. Normal left kidney. Normal visualized stomach. Normal small intestine. Increased in the colon. Oral contrast noted in the distal small bowel and right colon. Appendix is not clearly identified. There is diffuse atherosclerotic calcification of the abdominal aorta with elongation and tortuosity, but without a demonstrated aneurysm. Normal inferior vena cava. Normal retroperitoneum. STEPHENS catheter is noted in the bladder. Normal abdominal wall. Moderate scoliosis. Left total hip arthroplasty. Compression fracture T9 unchanged. CT/Abdomen/Pelvis WITH Contrast IMPRESSION: Increased stool. Possible fecal impaction in the rectum. Otherwise no acute disease. Electronically Signed: Yariel Riley MD at 22:49 EST , Service support ,
--- NOTE | 2020-02-15 20:28 | ED.VIS.GEN ---
History of Present Illness Informant: Patient Onset: Today Narrative: Patient sent from [facility] due to urine retention. Reported difficulty with placing a Carr catheter. Reported decreased stool output. Patient reports abdominal discomfort. She states her last urination was this morning. She reports that she may not have emptied fully. She states she has had urine retention before but unclear when. Reports her father did have history of colon cancer and thinks she may have had a colonoscopy in the past. Denies nausea or vomiting. She states she is only on blood pressure medications. Reports she did have a recent bowel movement. Prior similar symptoms: Yes <Regis Power - Last Filed: 02/15/20 21:41> <Yandel Starr - Last Filed: 02/15/20 23:54> Chief Complaint: Abd Pain Past Medical History Past Medical History: - - Hypertension, nonischemic cardiomyopathy, left bundle branch block. Surgical History: noncontributory, - - L THR, D+C. Smoking Status: Never smoker - Family History Maternal Family History: Family History (Last Reviewed 03/16/19 @ 14:36 by Matthew Vazquez NP, DISTRIBUTION DESIGNER-C) Father CAD (coronary artery disease) Hypertension Mother CVA (cerebral vascular accident) Hypertension Grandfather CAD (coronary artery disease) Grandfather CVA (cerebral vascular accident) Family History: Reports: - - Maternal family history of stroke. Paternal Family History: Family History (Last Reviewed 03/16/19 @ 14:36 by Matthew Vazquez NP, DISTRIBUTION DESIGNER-C) Father CAD (coronary artery disease) Hypertension Mother CVA (cerebral vascular accident) Hypertension Grandfather CAD (coronary artery disease) Grandfather CVA (cerebral vascular accident) Family History: Reports: - - Paternal family history of hypertension, colorectal cancer. <Regis Power - Last Filed: 02/15/20 21:41> - Family History Maternal Family History: Family History (Last Reviewed 03/16/19 @ 14:36 by Matthew Vazquez NP, DISTRIBUTION DESIGNER-C) Father CAD (coronary artery disease) Hypertension Mother CVA (cerebral vascular accident) Hypertension Grandfather CAD (coronary artery disease) Grandfather CVA (cerebral vascular accident) Paternal Family History: Family History (Last Reviewed 03/16/19 @ 14:36 by Matthew Vazquez NP, DISTRIBUTION DESIGNER-C) Father CAD (coronary artery disease) Hypertension Mother CVA (cerebral vascular accident) Hypertension Grandfather CAD (coronary artery disease) Grandfather CVA (cerebral vascular accident) <Jose JuanjeremiahYandel - Last Filed: 02/15/20 23:54> - Allergies and Home Meds Allergies/Adverse Reactions: Allergies No Known Allergies Allergy (Verified 02/15/20 21:02) Primary Care Physician: Erik Núñez MD [Primary Care Provider] - Review of Systems General: Denies: Chills, Fever, Sweats Eyes: Denies: Visual changes - bilaterally, Diplopia ENT: Denies: Rhinorrhea, Sore throat Cardiovascular: Denies: Chest pain, Palpitations Respiratory: Denies: Dyspnea, Cough, Dyspnea on exertion Gastrointestinal: Reports: Abdominal pain. Denies: Nausea, Vomiting, Diarrhea, Melena, Hematochezia Genitourinary: Reports: - - Urine retention. Denies: Dysuria, Hematuria, Frequency Musculoskeletal: Denies: Back pain, Extremity Pain Skin: Denies: Rash, Wounds Neurological: Denies: Headache, Weakness, Numbness <Regis Power - Last Filed: 02/15/20 21:41> Physical Exam Vital Signs/Narrative: Vital Signs Temp Pulse Resp BP Pulse Ox 02/15/20 20:04 97.1 F L 83 15 160/95 H 98 Inital Vital Signs reviewed: Yes General: Well nourished, Well developed, No Acute Distress Head: Normocephalic, Atraumatic Eyes: Perrl, EOMI ENT: Moist mucous membranes, No rhinorrhea Neck: Supple, Nontender Cardiovascular: Regular rate, Regular rhythm, No murmurs Respiratory: No distress, CTA bilaterally, Chest nontender Abdomen: Soft, Normal bowel sounds, Tender, - - Suprapubic tenderness with distention palpated up to the umbilicus. Back: Nontender, Normal Inspection Extremities: Nontender, No edema Skin: Normal color, No rash Neurological: Alert, Oriented x3, Cranial nerves II-XII grossly intact, Normal Strength, Normal Sensation Psychological: Normal affect, Normal Mood <Regis Power - Last Filed: 02/15/20 21:41> Vital Signs/Narrative: Vital Signs Temp Pulse Resp BP Pulse Ox 02/15/20 22:04 17 02/15/20 20:04 97.1 F L 83 15 160/95 H 98 <Yandel Starr - Last Filed: 02/15/20 23:54> Diagnostic/Tx/Re-eval - Medical Decision Making Patient with suprapubic distention on exam. Ordered for Carr catheter, nursing reported placed however there is no urine output. This was with a normal Carr catheter I did place a bedside ultrasound she had a distended bladder, the Carr bulb was outside the bladder gaxiola inferiorly. Patient denied any pain with distention at the bulb. Concerns for potential placement. I went and assisted the nurse, Yessenia Carr catheter more rigid and plastic, previous Carr was removed, placed in the same aspect and there was urine output. Reevaluation there was the least 1200 cc of urine output. Patient clinically was feeling better. Renal function was normal. Urine return negative for infection there is hematuria likely from trauma from Carr placement. However this only slight. CT scan was ordered with contrast due to being a female with urine retention for further evaluation. However there is the possibility of potential strictures due to resistance from the initial Carr catheter. Pending imaging results of the scan at this time. Patient will be signed out to night physician to follow-up on CT. <Regis Power - Last Filed: 02/15/20 21:41> - Medical Decision Making Her CAT scan showed constipation with feces in the rectum otherwise nothing acute. We did give her a small enema that she could not hold well. She has very soft stool in the rectum. This was removed by the nursing staff. At this time I feel her constipation likely led to her urinary retention. We will continue to have a Carr. They will continue to soften her stools but she has some rectal irritation therefore will be given some topical cream for this <Yandel Starr - Last Filed: 02/15/20 23:54> ED Disposition <Regis Power - Last Filed: 02/15/20 21:41> <Yandel Starr - Last Filed: 02/15/20 23:54> - Plan for ED Patient: Disposition: Home or Assisted Living Diagnosis: Urine retention, Constipation by delayed colonic transit Instructions: ED Carr Catheter, Care, ED Urinary Retention, Female Prescriptions: Menthol/Lanolin/Calamine/Znox [Calmoseptine Ointment] 1 applic TOPICAL 4X/DAY #1 tube Transmission Status: Pending to [id number] Referrals: Erik Núñez MD [Primary Care Provider] -
[2020-02-15 21:00] LABS: ALB/GLOB Ratio 0.9 RATIO (0.9-2.4); AST(SGOT) 14 U/L (15-37); Alanine Aminotransfer ALT/SGPT 12 U/L (13-56); Albumin, Serum 3.4 g/dL (3.2-5.0); Alkaline Phosphatase 80 U/L (45-117); Anion Gap 6 (5-15); BUN 16 mg/dL (7-18); BUN/Creat Ratio 17.4 RATIO (10-20); Bilirubin, Direct 0.19 mg/dL (0.00-0.30); Calcium,Total 8.9 mg/dL (8.5-10.1); Chloride 106 mmol/L (98-107); Creatinine, Serum 0.92 mg/dL (0.55-1.02); EST Glomerular Filtration Rate 62 mL/min (>60); Est Glom Filt Rate - Afr Amer 75 mL/min (>60); Estimated Creatinine Clearance 30.09 ml/min; Globulin 3.6 g/dL (2.2-4.2); Glucose 104 mg/dL (74-106); Potassium 3.8 mmol/L (3.5-5.1); Sodium Level 139 mmol/L (136-145)
[2020-02-15 21:02] LABS: Absolute Lymphocyte Count 1.54 X10^3/uL (0.83-4.51); Absolute Neutrophil Count 4.6 X10^3/uL (2.0-7.7); Basophil# 0.02 X10^3/uL; Basophil% 0.3 % (0-1); Eosinophil# 0.09 X10^3/uL; Eosinophils% 1.3 % (0-5); Hematocrit 41.2 % (37-47); Hemoglobin 13.6 g/dL (12.0-15.0); Lymphocyte # 1.54 X10^3/ul (4.0); Lymphocyte % 22.4 % (19-41); Mean Corpuscular Hgb 32.5 pg (27.0-32.0); Mean Corpuscular Volume 98.3 fL (81-99); Mean Platelet Vol. 10.2 fl (6.2-12.0); Monocyte# 0.63 X10^3/uL; Monocyte% 9.1 % (0-10); NRBC Flagged by Analyzer 0 % (0-5); Neutrophil # 4.59 X10^3/uL (2.7-7.7); Neutrophil % 66.6 % (47-70); Platelet Count 198 K/mm3 (150-450); RBC Distribution Width CV 11.9 % (11.6-14.6); RBC Distribution Width SD 42.9 fl (35.1-43.9); Red Blood Count 4.19 M/mm3 (4.2-5.4); White Blood Count 6.9 K/mm3 (4.4-11.0)
[2020-02-15 21:03] LABS: Bacteria 0 SEEN /hpf (None Seen); Mucous, Urine 0 SEEN /hpf (<or=2+); Red Blood Cells-Urine 0 SEEN /hpf (0-5); Squamous Epithelial Cells - UA 0 SEEN /hpf (5-10); White Blood Cells 0 SEEN /hpf (0-5)
[2020-02-15 21:07] LABS: Color, Urine Yellow (Yellow); Glucose, Dipstick Normal (Normal); Ketone-Dipstick 5 mg/dl (Negative); Leukocyte Esterase-Dipstick Negative /ul (Negative); Nitrite-Dipstick Negative (Negative); Occult Blood-Urine 10 /ul (Negative); Protein-Dipstick Negative (Negative); Urine Bilirubin Dipstick Negative (Negative); Urine Clarity Clear (Clear); Urine Urobilinogen Normal (Normal)
[2020-02-15 21:49] LABS: Lipase 139 U/L (73-393)
[2020-02-15 22:04] VITALS: RESP 17
[2020-02-16 00:12] VITALS: BP 147/89; PULSE 79; RESP 17; O2SAT 96
--- NOTE | 2020-02-16 00:13 | ED.RN ---
report called to cosme vazquez
== END 2020-02-16 00:27 | disposition home or self-care (01) ==
PROVIDERS: Emergency Medicine; Emergency Provider Emergency Medicine; PCP Family Medicine
DX: R33.9 Retention of urine, unspecified (principal); K59.01 Slow transit constipation; I11.0 Hypertensive heart disease with heart failure; I50.9 Heart failure, unspecified; I42.8 Other cardiomyopathies; I44.7 Left bundle-branch block, unspecified; Z79.899 Other long term (current) drug therapy; Z80.0 Family history of malignant neoplasm of digestive organs
CPT/HCPCS: 51702; 74177; 80053; 80076; 81001; 83690; 85025; 87086; 99285; Q9967; A4216

== ENCOUNTER → 2020-08-22 07:07 | Outpatient (REF) | payer MEDICARE, SELFPAY ==
[2020-08-15 14:16] VITALS: BMI 23.3
[2020-08-23 08:06] LABS: Color, Urine Yellow (Yellow); Glucose, Dipstick Normal (Normal); Ketone-Dipstick 5 mg/dl (Negative); Leukocyte Esterase-Dipstick 500 /ul (Negative); Nitrite-Dipstick Positive (Negative); Occult Blood-Urine 25 /ul (Negative); Protein-Dipstick Negative (Negative); Specific Gravity, Urine 1.015 (1.002-1.030); Urine Bilirubin Dipstick Negative (Negative); Urine Clarity Sl. Cloudy (Clear); Urine Urobilinogen Normal (Normal)
== END ==
LOC: OLS.DANBUR 07:07
PROVIDERS: PCP Family Medicine; Referring Provider Family Medicine; Visit Provider Family Medicine
DX: N39.0 Urinary tract infection, site not specified (principal)
CPT/HCPCS: 81002; 87086; 87088; 87186

== ENCOUNTER → 2020-09-07 09:00 | Outpatient (REF) | payer MEDICARE, SELFPAY ==
[2020-08-15 14:16] VITALS: BMI 23.3
[2020-09-07 13:50] LABS: Color, Urine Yellow (Yellow); Glucose, Dipstick Normal (Normal); Ketone-Dipstick Negative (Negative); Leukocyte Esterase-Dipstick 500 /ul (Negative); Nitrite-Dipstick Negative (Negative); Occult Blood-Urine 10 /ul (Negative); Protein-Dipstick Negative (Negative); Specific Gravity, Urine 1.015 (1.002-1.030); Urine Bilirubin Dipstick Negative (Negative); Urine Clarity Clear (Clear); Urine Urobilinogen Normal (Normal); Urine pH 6.5 (5.0 - 8.0)
== END ==
LOC: OLS.DANBUR 09:00
PROVIDERS: PCP Family Medicine; Visit Provider Family Medicine
DX: N39.0 Urinary tract infection, site not specified (principal)
CPT/HCPCS: 81002; 87077; 87086; 87088; 87186

== ENCOUNTER 2020-09-12 10:50 | Emergency (ER) | payer MEDICARE, SELFPAY ==
[2020-08-15 14:16] VITALS: BMI 23.3
[2020-09-12 10:51] VITALS: BP 100/51; PULSE 67; RESP 20; TEMP 36.4; O2SAT 98; BMI 23.3
[2020-09-12 10:59] VITALS: BP 100/51; PULSE 67; RESP 20; TEMP 36.4; O2SAT 98
--- NOTE | 2020-09-12 11:00 | ED.RN ---
PT ANSWERS QUESTION APPROPRIATELY FOR THE RN REGARDING THE YEAR AND MONTH, PT AWARE THAT SHE IS AT [facility].
--- NOTE | 2020-09-12 11:17 | EKG12_ITS ---
Test Reason : CONFUSION Blood Pressure : / mmHG Vent. Rate : 071 BPM Atrial Rate : 071 BPM P-R Int : 154 ms QRS Dur : 126 ms QT Int : 448 ms P-R-T Axes : 053 -64 086 degrees QTc Int : 486 ms Normal sinus rhythm Left axis deviation Left bundle branch block Abnormal ECG Confirmed by OLIVIA RIVERA, GUSTAVO ([id number]), state editor BENITO AVILES ([id number]) on 09/16/2020 9:27:06 AM Referred By: SHANELL Confirmed By:DAKOTA BAKER MD
--- NOTE | 2020-09-12 11:28 | CT_ITS ---
STUDY: CT BRAIN WITHOUT CONTRAST REASON FOR EXAM: Female, 84 years old. Altered mental status RADIATION DOSAGE (If Supplied By Facility): CTDIvol = ( 44.99 ) mGy, DLP = ( 745.49 ) mGycm TECHNIQUE: Transaxial CT imaging of the brain was performed without administration of intravenous contrast material. Individualized dose optimization techniques were used for this CT. COMPARISON: No relevant priors. FINDINGS: Normal soft tissue structures. There is hyperostosis frontalis internus. There is mild cerebral atrophy with widening of the extra-axial spaces and ventricular dilatation. There are areas of decreased attenuation within the white matter tracts of the supratentorial brain, consistent with microvascular disease changes. There are small punctate calcifications of the basal ganglia which are seen in the aging brain as a normal variant. Normal brainstem. Normal cerebellum. There is no intracranial hemorrhage. There are no findings of an acute ischemic infarction. Atherosclerotic calcification of the cavernous portions of the internal carotid arteries bilaterally. Normal visualized paranasal sinuses. CT/Brain/Head without Contrast IMPRESSION: Chronic involutional changes of the brain. Electronically Signed: Wes Ramirez MD at 12:10 EDT , Service support ,
--- NOTE | 2020-09-12 11:28 | RAD_ITS ---
STUDY: X-RAY CHEST REASON FOR EXAM: Female, 84 years old. Altered mental TECHNIQUE: Single AP portable view of the chest. COMPARISON: Comparison is made with prior study dated 11/27/2019. FINDINGS: EKG electrodes are seen. The lungs are clear and expanded. There is no demonstrated pleural abnormality. There is mild cardiac enlargement. Normal mediastinum and andrzej. Normal visualized pulmonary arteries. There is atherosclerotic tortuosity of the aortic arch and descending thoracic aorta. There are degenerative changes of the visualized thoracic spine. There is degenerative osteoarthritis of the bilateral shoulders. There is no demonstrated abnormality of the visualized soft tissue structures of the upper abdomen. RAD/Chest 1 View (Portable) IMPRESSION: Cardiomegaly. The lungs are clear. Electronically Signed: Wes Ramirez MD at 12:09 EDT , Service support ,
[2020-09-12 11:52] LABS: Absolute Lymphocyte Count 0.77 X10^3/uL (0.83-4.51); Absolute Neutrophil Count 4.3 X10^3/uL (2.0-7.7); Basophil# 0.03 X10^3/uL; Basophil% 0.5 % (0-1); Eosinophil# 0.03 X10^3/uL; Eosinophils% 0.5 % (0-5); Hemoglobin 13.8 g/dL (12.0-15.0); Lymphocyte # 0.77 X10^3/ul (0.83-4.51); Lymphocyte % 13.5 % (19-41); Mean Corp Hgb Conc 32.9 g/dL (32-36); Mean Corpuscular Hgb 32.4 pg (27.0-32.0); Mean Corpuscular Volume 98.6 fL (81-99); Mean Platelet Vol. 9.3 fl (6.2-12.0); Monocyte# 0.52 X10^3/uL; Monocyte% 9.1 % (0-10); NRBC Flagged by Analyzer 0 % (0-5); Neutrophil # 4.32 X10^3/uL (2.7-7.7); Platelet Count 157 K/mm3 (150-450); RBC Distribution Width SD 43.8 fl (35.1-43.9); Red Blood Count 4.26 M/mm3 (4.2-5.4); White Blood Count 5.7 K/mm3 (4.4-11.0)
[2020-09-12 12:03] LABS: ALB/GLOB Ratio 0.9 RATIO (0.9-2.4); AST(SGOT) 21 U/L (15-37); Alanine Aminotransfer ALT/SGPT 8 U/L (13-56); Albumin, Serum 3.5 g/dL (3.2-5.0); Alkaline Phosphatase 78 U/L (45-117); Anion Gap 9 (5-15); BUN 17 mg/dL (7-18); Calcium,Total 8.5 mg/dL (8.5-10.1); Chloride 103 mmol/L (98-107); Creatinine, Serum 1.13 mg/dL (0.55-1.02); EST Glomerular Filtration Rate 49 mL/min (>60); Est Glom Filt Rate - Afr Amer 59 mL/min (>60); Estimated Creatinine Clearance 27.06 ml/min; Globulin 3.7 g/dL (2.2-4.2); Glucose 140 mg/dL (74-106); Potassium 3.8 mmol/L (3.5-5.1); Protein, Total 7.2 g/dL (6.4-8.2); Sodium Level 140 mmol/L (136-145); Troponin-I HS 14.5 pg/mL (3.0-53.7)
[2020-09-12 13:17] VITALS: BP 141/54; PULSE 66; RESP 20; O2SAT 97
[2020-09-12 13:18] VITALS: BP 141/54; PULSE 71; RESP 20; TEMP 37.2; O2SAT 97
[2020-09-12 13:34] LABS: Bacteria 0 SEEN /hpf (None Seen); Mucous, Urine 0 SEEN /hpf (<or=2+); Red Blood Cells-Urine 0 SEEN /hpf (0-5); Squamous Epithelial Cells - UA 0 SEEN /hpf (5-10)
[2020-09-12 13:42] LABS: Color, Urine Yellow (Yellow); Glucose, Dipstick Normal (Normal); Ketone-Dipstick 5 mg/dl (Negative); Leukocyte Esterase-Dipstick 25 /ul (Negative); Nitrite-Dipstick Negative (Negative); Occult Blood-Urine 10 /ul (Negative); Protein-Dipstick Negative (Negative); Specific Gravity, Urine 1.015 (1.002-1.030); Urine Bilirubin Dipstick Negative (Negative); Urine Clarity Clear (Clear); Urine Urobilinogen 1 mg/dl (Normal); Urine pH 6.5 (5.0 - 8.0)
[2020-09-12 14:00] VITALS: BP 154/64; PULSE 76; RESP 20; TEMP 36.9; O2SAT 96
[2020-09-12 14:11] LABS: White Blood Cells 0-5 SEEN /hpf (0-5)
--- NOTE | 2020-09-12 14:30 | CM.ED ---
SOCIAL WORK Referral Source: Dr. Maldonado Reason for Consult: Confusion Met with patient in room. Introduced role and reason for referral. A&Ox2. Patient states resides at [place]. Patient reports has been treated for UTI. Patient denies any suicidal or homicidal ideation. Patient's brother, Shalom is HPOA. Patient calm and cooperative throughout conversation. Collaboration with nursing and Dr. Maldonado. Patient has been evaluated and observed in the ER for 4 hours. Patient does not meet criteria for adeline-psych. Patient to return to [place]. Rafita Vega, [employer], B[employer] CARPENTER
--- NOTE | 2020-09-12 14:36 | EDS_ITS ---
HPI History of Present Illness Chief Complaint: Confusion Narrative Narrative: 84-year-old female from the [facility] sent in for evaluation due to increasing agitation. Is reported that she was found crawling on the floor saying people were trying to kill her. Apparently she does have a history of dementia. She is a poor informant. 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 Home Medications aspirin 81 mg PO DAILY 07/26/16 [History Last Taken 09/12/20] calcium carbonate-vitamin D3 1 tab PO BID 07/26/16 [History Last Taken 09/09/20] carvedilol 37.5 mg PO BID 07/26/16 [History Last Taken 09/12/20] cyclosporine 1 drp EACH EYE BID 07/26/16 [History Last Taken 09/12/20] erythromycin 1 applic OPHTHALMIC QHS 07/27/16 [History Last Taken 09/11/20] polyethylene glycol 3350 17 g PO QODAY 02/11/17 [History Last Taken 09/10/20] econazole 1 % topical cream 1 applic TOPICAL DAILY PRN 09/08/18 [History Last Taken 09/11/20] losartan 100 mg tablet 100 mg PO DAILY #90 tab 06/02/19 [Rx Last Taken 09/12/20] alendronate 70 mg PO MO 12/09/19 [History Last Taken 09/09/20] atorvastatin 40 mg PO DAILY 12/09/19 [History Last Taken 09/11/20] menthol-zinc oxide 1 applic TOPICAL 4X/DAY #1 tube 02/15/20 [Rx Last Taken 09/11/20] cholecalciferol (vitamin D3) 50 mcg (2,000 unit) tablet 2,000 unit PO QODAY tab 02/21/20 [History Last Taken 09/09/20] amlodipine 2.5 mg tablet 2.5 mg PO DAILY 08/15/20 [History Last Taken 09/12/20] melatonin 3 mg capsule 3 mg PO HS PRN 08/15/20 [History Last Taken 09/11/20] carbidopa-levodopa 1 tab PO BID 09/12/20 [History Last Taken 09/12/20] ciprofloxacin HCl 250 mg PO BID 09/12/20 [History Last Taken 09/12/20] docusate sodium [Colace] 100 mg PO BID 09/12/20 [History Last Taken 09/12/20] fluorometholone 1 drp EACH EYE BID 09/12/20 [History Last Taken 09/12/20] Allergy/AdvReac Type Severity Reaction Status Date / Time No Known Allergies Allergy Verified 09/12/20 10:50 Family History Father CAD (coronary artery disease) Hypertension Mother CVA (cerebral vascular accident) Hypertension Grandfather CAD (coronary artery disease) Grandfather CVA (cerebral vascular accident) Surgical History History of left hip replacement History of skin graft Social History Smoking Status: Never smoker alcohol intake: never substance use type: does not use caffeine: No ROS ROS ED Review of Systems ROS Unobtainable: due to mental status EXAM Physical Exam Const Vital Signs: 09/12/20 10:51 09/12/20 10:59 09/12/20 13:17 Temperature 97.6 F L 97.6 F L Temperature Source Temporal Temporal Pulse Rate 67 67 66 Respiratory Rate 20 H 20 H 20 H Blood Pressure 100/51 L 100/51 L 141/54 H Blood Pressure Mean 67 67 83 Pulse Ox 98 98 97 Oxygen Delivery Method Room Air Room Air Room Air 09/12/20 13:18 09/12/20 14:00 Temperature 99.0 F 98.5 F Temperature Source Oral Temporal Pulse Rate 71 76 Respiratory Rate 20 H 20 H Blood Pressure 141/54 H 154/64 H Blood Pressure Mean 83 94 Pulse Ox 97 96 Oxygen Delivery Method Room Air Room Air Positive well nourished General Appearance ED: NAD HEENT Reports moist mucous membranes Negative for trauma Eyes PERRL and EOMs intact bilaterally Resp normal respiratory effort and clear to auscultation bilaterally Cardio regular rate and regular rhythm GI normal to inspection, nondistended, normoactive bowel sounds Extremity normal to inspection Neuro oriented x3 and CN's II-XII intact bilaterally Sensorium / Orientation: alert Psych Psych Narrative: Confused but calm. Skin no rashes or lesions noted and no wounds MDM MDM MDM Narrative Medical decision making narrative: Patient sent in for evaluation due to increasing agitation she has a history of dementia. Apparently she was found crawling on the floor and confused. There is no report of any head trauma. On physical exam there is no sign of trauma either. Her vital signs are stable and she is afebrile. She is not a great informant. She had an EKG performed on arrival which is sinus rhythm at 71 bpm on my interpretation. Chest x-ray on my interpretation shows mild cardiomegaly however her lungs are clear. Radiologist does agree. CT brain is negative for acute intracranial findings. Blood work is all normal. Urinalysis negative for infection. Patient has not been agitated or aggressive here with staff or myself. Patient evaluated by social work and at this time we do not believe she needs placement in geriatric psychiatric facility. Patient will be sent back to the [facility]. Impression: 1. Agitation 2. History of dementia Lab Data Labs: Laboratory Results - last 24 hr 09/12/20 09/12/20 09/12/20 11:35 11:35 13:25 WBC 5.7 RBC 4.26 Hgb 13.8 Hct 42.0 MCV 98.6 MCH 32.4 H MCHC 32.9 RDW Std Deviation 43.8 RDW Coeff of [place] 12.0 Plt Count 157 MPV 9.3 Immature Gran % (Auto) 0.400 Neut % (Auto) 76.0 H Lymph % (Auto) 13.5 L [place] % (Auto) 9.1 Eos % (Auto) 0.5 Baso % (Auto) 0.5 Absolute Neuts (auto) 4.3 Absolute Lymphs (auto) 0.77 L Nucleated RBC % 0 Sodium 140 Potassium 3.8 Chloride 103 Carbon Dioxide 28.0 Anion Gap 9 BUN 17 Creatinine 1.13 H Estim Creat Clear Calc 27.06 Est GFR (MDRD) Af Amer 59 L Est GFR (MDRD) Non-Af 49 L BUN/Creatinine Ratio 15.0 Glucose 140 H Calcium 8.5 Total Bilirubin 1.00 AST 21 ALT 8 L Alkaline Phosphatase 78 Troponin I High Sens 14.5 Total Protein 7.2 Albumin 3.5 Globulin 3.7 Albumin/Globulin Ratio 0.9 Urine Color Yellow Urine Clarity Clear Urine pH 6.5 Ur Specific [place] 1.015 Urine Protein Negative Urine Glucose (UA) Normal Urine Ketones 5 H Urine Occult Blood 10 H Urine Nitrite Negative Urine Bilirubin Negative Urine Urobilinogen 1 H Ur Leukocyte Esterase 25 H Urine RBC 0 SEEN Urine WBC 0-5 SEEN Ur Squamous Epith Cells 0 SEEN Urine Bacteria 0 SEEN Urine Mucus 0 SEEN Radiography Diagnostic Testing: Radiology Impression Brain CT 09/12/20 11:28 IMPRESSION: Chronic involutional changes of the brain. Electronically Signed: Wes Ramirez MD at 12:10 EDT , Service support , Chest X-Ray 09/12/20 11:28 IMPRESSION: Cardiomegaly. The lungs are clear. Electronically Signed: Wes Ramirez MD at 12:09 EDT , Service support , Discharge Plan Triage Chief Complaint: Confusion ED Provider: Steve Maldonado Dx/Rx/DC Orders Prescriptions: No Action econazole 1 % cream 1 applic TOPICAL DAILY PRN (Reason: Rash/Topical Irritation) RF: 0 cholecalciferol (vitamin D3) 50 mcg (2,000 unit) tablet 2,000 unit PO QODAY RF: 0 amlodipine 2.5 mg tablet 2.5 mg PO DAILY RF: 0 melatonin 3 mg capsule 3 mg PO HS PRN (Reason: Insomnia) RF: 0 carvedilol 25 MG tablet 37.5 mg PO BID RF: 0 aspirin 81 MG tablet,chewable 81 mg PO DAILY RF: 0 cyclosporine 1 DROP dropperette 1 drp EACH EYE BID RF: 0 calcium carbonate-vitamin D3 1 EACH tablet,chewable 1 tab PO BID RF: 0 erythromycin 1 APPLIC ointment 1 applic OPHTHALMIC QHS RF: 0 polyethylene glycol 3350 17 GM packet 17 g PO QODAY RF: 0 atorvastatin 40 mg tablet 40 mg PO DAILY RF: 0 alendronate 70 MG tablet 70 mg PO MO RF: 0 menthol-zinc oxide 1 APPLIC ointment 1 applic TOPICAL 4X/DAY Qty: 1 RF: 0 ciprofloxacin HCl 250 mg tablet 250 mg PO BID RF: 0 fluorometholone 0.1 % drops,suspension 1 drp EACH EYE BID RF: 0 carbidopa-levodopa 50-200 mg tablet extended release 1 tab PO BID RF: 0 docusate sodium [Colace] 100 mg Capsule 100 mg PO BID RF: 0 losartan 100 mg tablet 100 mg PO DAILY Qty: 90 RF: 3 Primary Care Provider: Erik Núñez
[2020-09-12 14:53] VITALS: BP 138/74; PULSE 67; RESP 15; O2SAT 97
== END 2020-09-12 15:30 | disposition home or self-care (01) ==
PROVIDERS: Emergency Provider Student in an Organized Health Care Education/Training Program; PCP Family Medicine
DX: G20 Parkinson's disease (principal); F02.80 Dementia in other diseases classified elsewhere, unspecified severity, without behavioral disturbance, psychotic disturbance, mood disturbance, and anxiety; I44.7 Left bundle-branch block, unspecified; K59.09 Other constipation; M35.00 Sjogren syndrome, unspecified; G89.4 Chronic pain syndrome; Z79.82 Long term (current) use of aspirin; Z79.899 Other long term (current) drug therapy
CPT/HCPCS: 70450; 71045; 80053; 81001; 84484; 85025; 93005; 99285; P9612; A4216